=== PATIENT | female | born 1965 | race Caucasian/White ===

== ENCOUNTER 2017-09-13 18:41 | Emergency (ER) | payer BC ==
[2017-09-13] MEDS ORDERED: Sodium Chloride 0.9% 1,000 ML IV SCH (19:15)
[2017-09-13] MEDS ORDERED: Meclizine 12.5 MG Tab PO ONE (19:16)
[2017-09-13] MEDS ORDERED: Ondansetron 4 MG/2 ML SDV IVPUSH ONE (19:17)
--- NOTE | 2017-09-13 19:44 | EDM.PDOC ---
ED HPI GENERAL MEDICAL PROBLEM - General Chief Complaint: Neurological Problem Stated Complaint: DIZZY VOMITING Time Seen by Provider: 09/13/17 19:00 Source of Information: Reports: Patient History Limitations: Reports: No Limitations - History of Present Illness INITIAL COMMENTS - FREE TEXT/NARRATIVE: This is a 51-year-old female. Onset yesterday evening with vertigo that continues today. She indicates if she moves her head in certain directions or stands up or bends over the room does spend and she gets very nauseated. Around 6 PM this evening she vomited 2. Initially she denied the room spinning and just stated that her balance was kind of off. However during the interview and the exam I was able to reproduce the room spinning with movement of her head. That is when she confirmed that yes it really was the room spinning even though she felt off balance as well. She denies any recent illnesses. No ear pain no nasal congestion no sore throat no cough no headache no chest pain no abdominal pain no problems urinating. She comes of course tonight because of the severe nausea and vomiting and vertigo. Treatments DIRECTOR OF TEENAGE ACTIVITIES: Reports: Other (see below) Other Treatments DIRECTOR OF TEENAGE ACTIVITIES: none Lower Back Pain Score (Numeric/FACES): 2 - Related Data Allergies Allergy/AdvReac Type Severity Reaction Status Date / Time tramadol HCl [From Ultram] Allergy Nausea and Verified 09/26/13 19:43 Vomiting fosomax Allergy Nausea and Uncoded 09/26/13 19:43 Vomiting Home Meds: Home Meds Levothyroxine Sodium [Synthroid] 112 mcg PO DAILY 09/26/13 [History] Venlafaxine [Effexor] 100 mg PO DAILY 09/26/13 [History] Meclizine [Antivert] 12.5 mg PO TID PRN #10 tab 09/13/17 [Rx] Ondansetron HCl [Zofran] 4 mg PO Q6H PRN #5 tablet 09/13/17 [Rx] Past Medical History Neurological History: Reports: Migraines Psychiatric History: Reports: Anxiety, Depression Endocrine/Metabolic History: Reports: Hypothyroidism - Past Surgical History HEENT Surgical History: Reports: Adenoidectomy, Oral Surgery, Tonsillectomy Female Surgical History: Reports: Hysterectomy, Other (See Below) Other Female Surgeries/Procedures: breast reduction Musculoskeletal Surgical History: Reports: Arthroscopic Procedure, Carpal Tunnel , Other (See Below) Other Musculoskeletal Surgeries/Procedures:: bladder mesh; carpel tunnel surgery Social & Family History - Tobacco Use Smoking Status *Q: Never Smoker Second Hand Smoke Exposure: No - Caffeine Use Caffeine Use: Reports: Coffee, Soda, Tea - Alcohol Use Days Per Week of Alcohol Use: 0 - Recreational Drug Use Recreational Drug Use: No ED ROS GENERAL - Review of Systems Review Of Systems: See Below Constitutional: Denies: Fever, Chills HEENT: Denies: Sinus Problem Respiratory: Denies: Shortness of Breath, Cough Cardiovascular: Denies: Chest Pain Endocrine: Reports: No Symptoms GI/Abdominal: Reports: Nausea, Vomiting. Denies: Abdominal Pain, Diarrhea : Denies: Dysuria Musculoskeletal: Reports: No Symptoms Skin: Reports: No Symptoms Neurological: Reports: Dizziness, Difficulty Walking, Weakness. Denies: Headache, Numbness, Tingling, Trouble Speaking Psychiatric: Reports: No Symptoms Hematologic/Lymphatic: Reports: No Symptoms ED EXAM, DIZZINESS - Physical Exam Exam: See Below Exam Limited By: No Limitations General Appearance: Alert, WD/WN, Mild Distress Eye Exam: Bilateral Eye: EOMI, Normal Inspection, PERRL, Other (When I put the head of her bed at 30 and then gently moved her head to the left quickly she developed vertigo and you can see some slight horizontal nystagmus, when I moved her head to the right gently but quickly there were no symptoms of vertigo and there was no nystatin this) Nystagmus: worsens with head to L, reproducible Ears: Normal External Exam, Normal Canal, Normal TMs Nose: Normal Inspection, Normal Mucosa. No: Nasal Drainage, Clear Rhinorrhea Throat/Mouth: Normal Inspection, Normal Lips, Normal Oropharynx, Normal Voice, No Airway Compromise Head Exam: Normocephalic Vertigo: worsens with head to L, reproducible Neck: Normal Inspection, Supple, Non-Tender. No: Carotid Bruit Respiratory/Chest: No Respiratory Distress, Lungs Clear, Normal Breath Sounds Cardiovascular: Regular Rate, Rhythm, No Murmur GI/Abdominal: Soft, Non-Tender Neurological: Alert, Normal Mood/Affect, No Motor/Sensory Deficits, Oriented x 3 , Other (She moves her 4 extremities equally and has no asymmetrical weakness noted in the arms or legs) Back Exam: Full Range of Motion Extremities: Normal Inspection, Normal Range of Motion Psychiatric: Normal Affect, Normal Mood Skin Exam: Warm, Dry Course - Vital Signs Last Recorded V/S: Last Vital Signs Temp 97.7 F 09/13/17 18:57 Pulse 66 09/13/17 18:57 Resp 20 09/13/17 18:57 BP 127/85 09/13/17 18:57 Pulse Ox 100 09/13/17 18:57 - Orders/Labs/Meds Orders: Active Orders 24 hr Category Date Time Status Sodium Chloride 0.9% [Normal Saline] 1,000 ml Med 09/13/17 19:15 Active IV ASDIRECTED Medication Orders Sodium Chloride (Normal Saline) 1,000 mls @ 1,000 mls/hr IV ASDIRECTED BETHANY Last Admin: 09/13/17 19:26 Dose: 1,000 mls/hr Labs: Laboratory Tests 09/13/17 09/13/17 Range/Units 19:24 19:24 WBC 5.18 (3.98-10.04) K/mm3 RBC 4.32 (3.98-5.22) M/mm3 Hgb 12.2 (11.2-15.7) gm/L Hct 36.9 (34.1-44.9) % MCV 85.4 (79.4-94.8) fl MCH 28.2 (25.6-32.2) pg MCHC 33.1 (32.2-35.5) g/dl RDW Std Deviation 38.7 (36.4-46.3) fL Plt Count 236 (182-369) K/mm3 MPV 8.9 L (9.4-12.3) fl Neut % (Auto) 58.5 (34.0-71.1) % Lymph % (Auto) 33.2 (19.3-51.7) % [place] % (Auto) 8.1 (4.7-12.5) % Eos % (Auto) 0.2 L (0.7-5.8) Baso % (Auto) 0.0 L (0.1-1.2) % Neut # (Auto) 3.03 (1.56-6.13) K/mm3 Lymph # (Auto) 1.72 (1.18-3.74) K/mm3 [place] # (Auto) 0.42 H (0.24-0.36) K/mm3 Eos # (Auto) 0.01 L (0.04-0.36) K/mm3 Baso # (Auto) 0.00 L (0.01-0.08) K/mm3 Sodium 143 (136-145) mEq/L Potassium 4.1 (3.5-5.1) mEq/L Chloride 105 (98-107) mEq/L Carbon Dioxide 29 (21-32) mEq/L Anion Gap 13.1 (5-15) BUN 15 (7-18) mg/dL Creatinine 0.9 (0.55-1.02) mg/dL Est Cr Clr Drug Dosing 62.55 mL/min Estimated GFR (MDRD) > 60 (>60) mL/min BUN/Creatinine Ratio 16.7 (14-18) Glucose 106 (74-106) mg/dL Calcium 9.2 (8.5-10.1) mg/dL Magnesium 2.1 (1.8-2.4) mg/dl Total Bilirubin 0.3 (0.2-1.0) mg/dL AST 21 (15-37) U/L ALT 23 (14-59) U/L Alkaline Phosphatase 80 (46-116) U/L Total Protein 7.1 (6.4-8.2) g/dl Albumin 4.2 (3.4-5.0) g/dl Globulin 2.9 gm/dL Albumin/Globulin Ratio 1.5 (1-2) Meds: Medications Generic Name Dose Route Start Last Admin Trade Name Freq PRN Reason Stop Dose Admin Sodium Chloride 1,000 mls @ 1,000 mls/hr 09/13/17 19:15 09/13/17 19:26 Normal Saline IV 1,000 mls/hr ASDIRECTED BETHANY Administration Discontinued Medications Generic Name Dose Route Start Last Admin Trade Name Freq PRN Reason Stop Dose Admin Diazepam 5 mg 09/13/17 19:16 09/13/17 19:26 Valium IVPUSH 09/13/17 19:17 5 mg ONETIME ONE Administration Diphenhydramine HCl 25 mg 09/13/17 21:34 09/13/17 21:41 Benadryl IVPUSH 09/13/17 21:35 25 mg ONETIME ONE Administration Diphenhydramine HCl 25 mg 09/13/17 22:08 09/13/17 22:13 Benadryl IVPUSH 09/13/17 22:09 25 mg ONETIME ONE Administration Promethazine HCl 25 mg/ Sodium 51 mls @ 100 mls/hr 09/13/17 20:27 09/13/17 20 :42 Chloride IV 09/13/17 20:57 100 mls/hr ONETIME ONE Administration Sodium Chloride 1,000 mls @ 999 mls/hr 09/13/17 20:29 09/13/17 20:42 Normal Saline IV 09/13/17 21:29 999 mls/hr ONETIME ONE Administration Lorazepam 1 mg 09/13/17 22:34 09/13/17 22:40 Ativan IVPUSH 09/13/17 22:35 1 mg ONETIME ONE Administration Meclizine HCl 25 mg 09/13/17 19:16 09/13/17 19:26 Antivert PO 09/13/17 19:17 25 mg ONETIME ONE Administration Ondansetron HCl 4 mg 09/13/17 19:17 09/13/17 19:26 Zofran IVPUSH 09/13/17 19:18 4 mg ONETIME ONE Administration - Radiology Interpretation Free Text/Narrative:: CT scan of the head did not show any acute intracranial changes. - Re-Assessments/Exams Free Text/Narrative Re-Assessment/Exam: 09/13/17 20:41 Patient's complaining of her right eyelid feels like it's, drooping. I go to examine her but I do not see any asymmetry between the eyelids and she is able to blink appropriately though it feels like it is lagging for her. She also complains maybe of a mild headache generally this seems to have started. I will go ahead and do a CAT scan on her just to be certain were not missing anything here. The nurse did a neuro exam on her and there was no deficits noted at this time including sensation to the cheeks. 09/13/17 20:43 Reexam at this time of the patient's symptoms reveals no ptosis of the right eyelid, 3 EOMs are intact, she is able to verbalize with no difficulty, I do not see any deficit or facial drooping at this time. She seems to have symmetrical shooter helper, carotid bruits are negative. She is responsive and answering questions appropriately. 09/13/17 21:34 I spoke to the patient regarding the CT scan results as being negative. She now complains of her left leg having jerking and some sharp pain and it appeared we will stop the Phenergan and then I'll give her some 25 mg of Benadryl and if I need to provide some Ativan as well for her anxiety. Other than that she states she is doing better. 09/13/17 22:08 The patient appears to have had a mild reaction to the Phenergan and we gave her 25 mg of Benadryl but she still having some of the restless leg. We'll provide another 25 mg of Benadryl and if that does not resolve but will try some Ativan. 09/13/17 23:07 I've spoken to the patient and as it turns out she apparently has a history of restless leg syndrome and they tried on Lyrica but she couldn't take it. It is interesting to note that when no ER person is in the room she seems to be calm and she'll sleep in her leg will jerk. Is soon as I go into the room however and begin to talk to her as when she seems to have increasing jerking away seems to be the left lower extremity. I talked to her at length about restless leg and that there are other medication she can take besides Lyrica to help with the restless leg. She has not seen her family doctor in 4 months and I encouraged her to go back this week to see him to see what can be done about the restless leg problems that she is having. The patient states she understands. Departure - Departure Time of Disposition: 23:09 Disposition: Home, Self-Care 01 Condition: Fair Clinical Impression: Restless leg syndrome Benign positional vertigo Qualifiers: Laterality: left Qualified Code(s): H81.12 - Benign paroxysmal vertigo, left ear Nausea and vomiting Qualifiers: Vomiting type: unspecified Vomiting Intractability: non-intractable Qualified Code(s): R11.2 - Nausea with vomiting, unspecified - Discharge Information Prescriptions: Meclizine [Antivert] 12.5 mg PO TID PRN #10 tab PRN Reason: Dizziness Ondansetron HCl [Zofran] 4 mg PO Q6H PRN #5 tablet PRN Reason: Nausea Referrals: Fran Lombardo MD [Primary Care Provider] - Forms: ED Department Discharge Additional Instructions: Home and sleep in a dark room, the very careful about what you do tomorrow since the vertigo might return, if the dizziness/vertigo returns you may use the Zofran for the nausea as well as the meclizine to help with the dizziness, you need to drink lots of water and juices to stay well-hydrated since that will help, the need to follow up with your family doctor this week regarding your restless leg syndrome, return to the ER if needed - My Orders Last 24 Hours: My Active Orders 09/13/17 19:15 Sodium Chloride 0.9% [Normal Saline] 1,000 ml IV ASDIRECTED - Assessment/Plan Last 24 Hours: My Active Orders 09/13/17 19:15 Sodium Chloride 0.9% [Normal Saline] 1,000 ml IV ASDIRECTED
[2017-09-13] MEDS ORDERED: Promethazine 25 MG in Sodium Chloride 0.9% 50 ML IV ONE (20:27)
[2017-09-13] MEDS ORDERED: Sodium Chloride 0.9% 1,000 ML IV ONE (20:29)
--- NOTE | 2017-09-13 21:14 | CT ---
Head CT Technique: Multiple axial sections through the brain were obtained. Intravenous contrast was not utilized. Comparison: Prior noncontrast head CT exam of 10/24/12. Findings: Ventricles along with basal cisterns and sulci over the convexities are within normal limits for the patient's age. Slight basal ganglia calcification is noted. No abnormal parenchymal densities are seen. No evidence of intracranial hemorrhage. No midline shift or mass effect is seen. Bone window settings were reviewed which shows no acute calvarial abnormality. Visualized sinuses are clear. Impression: 1. Nothing acute is appreciated on noncontrast head CT study. If patient's symptoms warrant further imaging, MRI with diffusion could be considered. Diagnostic code #1
[2017-09-13] MEDS ORDERED: diphenhydrAMINE 50 MG/ML SDV IVPUSH ONE ×2 (21:34→22:08)
[2017-09-13] MEDS ORDERED: LORazepam 2 MG/ML SDV IVPUSH ONE (22:34)
== END 2017-09-13 23:25 | disposition home or self-care (01) ==
LOC: JD.ED 18:41
DX: H81.12 Benign paroxysmal vertigo, left ear (principal); G25.81 Restless legs syndrome; E03.9 Hypothyroidism, unspecified; Z88.5 Allergy status to narcotic agent; Z88.8 Allergy status to other drugs, medicaments and biological substances; Z79.899 Other long term (current) drug therapy
CPT/HCPCS: 36415; 70450; 80053; 83735; 85025; 96361; 96374; 96375; 96376; 99284; A9270; J1200; J2060; J2405; J2550; J3360; J7040; J7050

== ENCOUNTER 2018-02-01 14:37 | Emergency (ER) | payer BC ==
[2018-02-01] MEDS ORDERED: Acetaminophen/HYDROcodone 325-5 MG Tab PO ONE (15:27)
[2018-02-01] MEDS ORDERED: Diphtheria,Pertussis(Acell),Tetanus Vaccine 0.5 ML SDV IM ONE (16:37)
--- NOTE | 2018-02-01 16:42 | EDM.PDOC ---
ED HPI GENERAL MEDICAL PROBLEM - General Chief Complaint: Laceration Stated Complaint: TOE INJURY Time Seen by Provider: 02/01/18 14:56 Source of Information: Reports: Patient History Limitations: Reports: No Limitations - History of Present Illness INITIAL COMMENTS - FREE TEXT/NARRATIVE: The patient was in her garage and slipped and fell and hit her left great toe and cut it. She did not hit her head or hurt her neck. She has no chest pain or abdominal pain. She does have some mild upper back pain and right knee pain. She has moderate pain to her left great toe. Onset: Sudden Duration: Minutes: Location: Reports: Back (right upper back), Lower Extremity, Left (great toe), Lower Extremity, Right (knee) Quality: Reports: Sharp Severity: Moderate Improves with: Reports: Immobilization Worsens with: Reports: Movement Context: Reports: Trauma (She fell in her garage) Associated Symptoms: Reports: No Other Symptoms Left Feet Pain Score (Numeric/FACES): 8 - Related Data Allergies Allergy/AdvReac Type Severity Reaction Status Date / Time tramadol HCl [From [facility]] Allergy Nausea and Verified 02/01/18 14:53 Vomiting fosomax Allergy Nausea and Uncoded 09/26/13 19:43 Vomiting Home Meds: Home Meds Levothyroxine Sodium [Synthroid] 112 mcg PO DAILY 09/26/13 [History] Venlafaxine [Effexor] 100 mg PO DAILY 09/26/13 [History] Cholecalciferol (Vitamin D3) [Vitamin D] 1 tab PO DAILY 02/01/18 [History] Magnesium 200 mg PO DAILY 02/01/18 [History] Melatonin 5 mg PO BEDTIME 02/01/18 [History] Past Medical History [employer]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: Neurological History: Reports: Migraines, Other (See Below) Other Neuro History: restless leg syndrome Psychiatric History: Reports: Anxiety, Depression Endocrine/Metabolic History: Reports: Hypothyroidism - Past Surgical History HEENT Surgical History: Reports: Adenoidectomy, Oral Surgery, Tonsillectomy Female Surgical History: Reports: Hysterectomy, Other (See Below) Other Female Surgeries/Procedures: breast reduction Musculoskeletal Surgical History: Reports: Arthroscopic Procedure, Carpal Tunnel , Other (See Below) Other Musculoskeletal Surgeries/Procedures:: bladder mesh; carpel tunnel surgery Social & Family History - Tobacco Use Smoking Status *Q: Unknown Ever Smoked - Caffeine Use Caffeine Use: Reports: Coffee - Recreational Drug Use Recreational Drug Use: Yes ED ROS GENERAL - Review of Systems Review Of Systems: See Below Constitutional: Reports: No Symptoms HEENT: Reports: No Symptoms Respiratory: Reports: No Symptoms Cardiovascular: Reports: No Symptoms Endocrine: Reports: No Symptoms GI/Abdominal: Reports: No Symptoms : Reports: No Symptoms Musculoskeletal: Reports: Back Pain (right upper back), Other (Left great toe pain and laceration. Right knee pain) ED EXAM, SKIN/RASH Exam: See Below Exam Limited By: No Limitations General Appearance: Alert, No Apparent Distress Ears: Normal External Exam Nose: Normal Inspection Head: Atraumatic, Normocephalic Neck: Normal Inspection Respiratory/Chest: No Respiratory Distress, Lungs Clear, Normal Breath Sounds Cardiovascular: Regular Rate, Rhythm, No Edema, No Murmur GI/Abdominal: Soft, Non-Tender, No Organomegaly, No Mass Back Exam: Other (Mild pain upon palpation to the right scapula) Extremities: Other (Mild pain upon palpation to the right knee. 2cm laceration to the left great toe with more abrasions proximal. Pain upon palpation and with movement.) Neurological: Alert, Oriented, No Motor/Sensory Deficits ED SKIN PROCEDURES - Laceration/Wound Repair Left Toe - Great Lac/Wound length In cm: 2 Appearance: Superficial, Clean Distal NVT: Neuro & Vascular Intact, No Tendon Injury Closed with: Dermabond Tetanus Status Addressed: Yes Complications: No Course - Vital Signs Last Recorded V/S: Last Vital Signs Temp 98.6 F 02/01/18 14:50 Pulse 70 02/01/18 14:50 Resp 18 02/01/18 14:50 BP 139/82 02/01/18 14:50 Pulse Ox 99 02/01/18 14:50 - Orders/Labs/Meds Orders: Active Orders 24 hr Category Date Time Status Foot Comp Min 3V Lt [CR] Stat Exams 02/01/18 15:27 Ordered Meds: Medications Discontinued Medications Generic Name Dose Route Start Last Admin Trade Name Freq PRN Reason Stop Dose Admin Hydrocodone Bitart/Acetaminophen 1 tab 02/01/18 15:27 02/01/18 15:40 [place] 325-5 Mg PO 02/01/18 15:28 1 tab ONETIME ONE Administration - Re-Assessments/Exams Free Text/Narrative Re-Assessment/Exam: 02/01/18 16:42 I did an x-ray of her toe and it looked good. I used some adhesive to close the wound. I updated her tetanus. I also gave her some hydrocodone for pain. Departure - Departure Time of Disposition: 16:45 Disposition: Home, Self-Care 01 Condition: Good Clinical Impression: Abrasion, left great toe, initial encounter Fall Qualifiers: Encounter type: initial encounter Qualified Code(s): W19.XXXA - Unspecified fall, initial encounter Laceration of left great toe Qualifiers: Encounter type: initial encounter Damage to nail status: without damage Foreign body presence: without foreign body Qualified Code(s): S91.112A - Laceration without foreign body of left great toe without damage to nail, initial encounter Sprain of left great toe Qualifiers: Encounter type: initial encounter Qualified Code(s): S93.502A - Unspecified sprain of left great toe, initial encounter Contusion of right knee Qualifiers: Encounter type: initial encounter Qualified Code(s): S80.01XA - Contusion of right knee, initial encounter - Discharge Information *PRESCRIPTION DRUG MONITORING PROGRAM REVIEWED*: No *COPY OF PRESCRIPTION DRUG MONITORING REPORT IN PATIENT DIPESH: No Referrals: Fran Lomabrdo MD [Primary Care Provider] - 1 Week Additional Instructions: Soak your foot in warm soapy water 2 times per day for 5 days. Please return if you see any signs of infection such as redness, swelling, pain, or drainage. You may need an antibiotic. Ice the areas that hurt for 15 minutes 3 times per day for 2 days. Take motrin or tylenol for pain. If that does not help, you may try a hydrocodone. Follow up with your doctor if you are not better in 1 week. Please return if you are worse. - My Orders Last 24 Hours: My Active Orders 02/01/18 15:27 Foot Comp Min 3V Lt [CR] Stat - Assessment/Plan Last 24 Hours: My Active Orders 02/01/18 15:27 Foot Comp Min 3V Lt [CR] Stat
--- NOTE | 2018-02-02 13:19 | CR ---
Left foot: Four portable views of the left foot were obtained. Comparison: No previous study. No fracture, dislocation or other bony abnormality is seen. Impression: 1. No abnormality is appreciated on left foot exam. Diagnostic code #1
== END 2018-02-01 17:00 | disposition home or self-care (01) ==
LOC: JD.ED 14:37
DX: S91.112A Laceration without foreign body of left great toe without damage to nail, initial encounter (principal); S93.502A Unspecified sprain of left great toe, initial encounter; S80.01XA Contusion of right knee, initial encounter; F41.9 Anxiety disorder, unspecified; F32.9 Major depressive disorder, single episode, unspecified; E03.9 Hypothyroidism, unspecified; Z79.899 Other long term (current) drug therapy; Z23 Encounter for immunization; Z88.5 Allergy status to narcotic agent; Z88.8 Allergy status to other drugs, medicaments and biological substances; W01.198A Fall on same level from slipping, tripping and stumbling with subsequent striking against other object, initial encounter; Y92.59 Other trade areas as the place of occurrence of the external cause
CPT/HCPCS: 12001; 73630; 90471; 90715; 99284; A9270; 99283

== ENCOUNTER 2018-02-16 08:44 | Inpatient (IN) | payer BC ==
--- NOTE | 2018-02-16 08:24 | PCM.PREANE ---
Preanesthetic Assessment - Anesthesia/Transfusion/Family Hx Anesthesia History: Prior Anesthesia Without Reaction Family History of Anesthesia Reaction: No Transfusion History: Prior Transfusion Without Reaction Intubation History: Unknown - Review of Systems General: No Symptoms Pulmonary: No Symptoms (quit smoking 2004) Cardiovascular: No Symptoms Gastrointestinal: No Symptoms, Constipation Neurological: No Symptoms (History of Back Surgery:2002 L5-S1, 2013 L3-L5.), Headache, Numbness (left leg since back surgery along with 3 toes on the left foot.), Tingling Other: Reports: Thyroid Problems (History of hypothyroid), Neck Pain (bulge disk in neck noted per patient), Depression, Anxiety - Physical Assessment NPO Status Date: 02/15/18 NPO Status Time: 23:15 Pulse: 72 O2 Sat by Pulse Oximetry: 95 Respiratory Rate: 16 Blood Pressure: 130/85 Temperature: 36.7 C Height: 1.55 m Weight: 75.296 kg ASA Class: 2 Mental Status: Alert & Oriented x3 Airway Class: Mallampati = 2 Dentition: Reports: Normal Dentition, Missing Tooth/Teeth, Caries Thyro-Mental Finger Breadths: 3 Mouth Opening Finger Breadths: 3 ROM/Head Extension: Full Lungs: Clear to Auscultation, Normal Respiratory Effort Cardiovascular: Regular Rate, Regular Rhythm, No Murmurs - Lab Values: Laboratory Last Values MRSA (PCR) Negative 01/30/18 09:57 All lab values reviewed and noted and within acceptable ranges to proceed with scheduled procedure. - Imaging/EKG Impressions: CXR: normal EKG: SR rate= 67 - Allergies Allergies/Adverse Reactions: Allergies Allergy/AdvReac Type Severity Reaction Status Date / Time promethazine Allergy Cannot Verified 02/13/18 13:41 Remember alendronate sodium AdvReac Nausea and Verified 02/13/18 13:41 Vomiting tramadol HCl [From Ultram] AdvReac Nausea and Verified 02/13/18 13:41 Vomiting - Anesthesia Plan Pre-Op Medication Ordered: None - Acknowledgements Anesthesia Type Planned: General Anesthesia, Spinal, Regional Block (Right adductor canal block under US guidance for post operative pain control requested by Dr. 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 Musculoskeletal History: Reports: Osteoarthritis Neurological History: Reports: Migraines Psychiatric History: Reports: Anxiety, Depression Endocrine/Metabolic History: Reports: Hypothyroidism Hematologic History: Reports: None Immunologic History: Reports: None Oncologic (Cancer) History: Reports: None Dermatologic History: Reports: None - Past Surgical History Head Surgeries/Procedures: Reports: None HEENT Surgical History: Reports: Adenoidectomy, Oral Surgery, Tonsillectomy Cardiovascular Surgical History: Reports: None Respiratory Surgical History: Reports: None GI Surgical History: Reports: Colonoscopy Female Surgical History: Reports: Breast Reconstruction, Hysterectomy, Other (See Below) Other Female Surgeries/Procedures: breast reduction Endocrine Surgical History: Reports: None Neurological Surgical History: Reports: Other (See Below) Other Neurological Surgeries/Procedures: L5S1, L3L4L5 surgeries Musculoskeletal Surgical History: Reports: Arthroscopic Procedure, Carpal Tunnel , Other (See Below) Other Musculoskeletal Surgeries/Procedures:: bladder mesh; carpel tunnel surgery Oncologic Surgical History: Reports: None Dermatological Surgical History: Reports: None - SUBSTANCE USE Smoking Status *Q: Former Smoker Second Hand Smoke Exposure: No Recreational Drug Use History: No - HOME MEDS Home Medications: Home Meds Cholecalciferol (Vitamin D3) [Vitamin D3] 5,000 unit PO DAILY 02/13/18 [History] Levothyroxine Sodium [Synthroid] 100 mcg PO DAILY 02/13/18 [History] Magnesium Oxide [Magnesium] 400 mg PO DAILY 02/13/18 [History] Venlafaxine HCl [Venlafaxine ER] 150 mg PO DAILY 02/13/18 [History] - CURRENT (IN HOUSE) MEDS Current Meds: Current Medications Acetaminophen (Tylenol) 975 mg PO ONETIME [facility] Stop: 02/16/18 18:00 Aspirin (Ecotrin) 325 mg PO BID [facility] Bisacodyl (Dulcolax) 5 mg PO DAILY PRN PRN Reason: Constipation Morphine Sulfate 8 mg/Epinephrine HCl 0.3 mg/Cefuroxime Sodium 750 mg/Ketorolac Tromethamine 30 mg/Sodium Chloride 27.9 ml 0 mg .XX ONETIME ONE Stop: 02/16/18 11:01 Cyclobenzaprine HCl (Flexeril) 10 mg PO TID PRN PRN Reason: Spasms Docusate Sodium (Colace) 100 mg PO BID [facility] Famotidine (Pepcid) 20 mg PO Q12H [facility] Lactated Ringer's (Ringers, Lactated) 1,000 mls @ 125 mls/hr IV ASDIRECTED [facility] Stop: 02/16/18 23:00 Cefazolin Sodium/Dextrose 2 gm (/ Premix) 50 mls @ 100 mls/hr IV Q8H [facility] Stop: 02/16/18 23:14 Ketorolac Tromethamine (Toradol) 15 mg IVPUSH Q6H PRN PRN Reason: Pain Lidocaine/Sodium Bicarbonate (Buffered Lidocaine 1% In Ns 8.4%) 0.25 ml IDERM ONETIME PRN PRN Reason: Prior to IV Start Stop: 02/16/18 18:00 Magnesium Hydroxide (Milk Of Magnesia) 30 ml PO BID PRN PRN Reason: Constipation Morphine Sulfate (Morphine) 2 mg IVPUSH Q2H PRN PRN Reason: Breakthrough Pain Naloxone HCl (Narcan) 0.1 mg IVPUSH Q5M PRN PRN Reason: Oversedation Ondansetron HCl (Zofran) 4 mg IVPUSH Q6H PRN PRN Reason: Nausea/Vomiting Oxycodone HCl (Oxycontin) 10 mg PO ONETIME [facility] Stop: 02/16/18 18:00 Oxycodone/Acetaminophen (Percocet 325-5 Mg) 1 - 2 tab PO Q4H PRN PRN Reason: Pain Pregabalin (Lyrica) 50 mg PO ONETIME [facility] Stop: 02/16/18 18:00 Senna (Senna) 8.6 mg PO BID PRN PRN Reason: Constipation Sodium Chloride (Saline Flush) 10 ml FLUSH ASDIRECTED PRN PRN Reason: Keep Vein Open Stop: 02/16/18 18:00 Discontinued Medications Bupivacaine HCl/Dextrose (Marcaine 0.75% Spinal) Confirm Administered Dose 2 ml .ROUTE .STK-MED ONE Stop: 02/16/18 07:28 Cefazolin Sodium (Ancef) Confirm Administered Dose 2 gm .ROUTE .STK-MED ONE Stop: 02/16/18 07:28 Dexamethasone (Dexamethasone) Confirm Administered Dose 4 mg .ROUTE .STK-MED ONE Stop: 02/16/18 07:28 Epinephrine HCl (Adrenalin) Confirm Administered Dose 1 mg .ROUTE .STK-MED ONE Stop: 02/16/18 07:35 Fentanyl (Sublimaze) Confirm Administered Dose 100 mcg .ROUTE .STK-MED ONE Stop: 02/16/18 07:28 Lidocaine HCl (Xylocaine-Mpf 1%) Confirm Administered Dose 14 mls @ as directed .ROUTE .STK-MED ONE Stop: 02/16/18 07:28 Lactated Ringer's (Ringers, Lactated) Confirm Administered Dose 1,000 mls @ as directed .ROUTE .ST-MED ONE Stop: 02/16/18 07:28 Ketorolac Tromethamine (Toradol) Confirm Administered Dose 30 mg .ROUTE .ST- MED ONE Stop: 02/16/18 07:28 Midazolam HCl (Versed 1 Mg/Ml) Confirm Administered Dose 2 mg .ROUTE .STK-MED ONE Stop: 02/16/18 07:28 Ondansetron HCl (Zofran) Confirm Administered Dose 4 mg .ROUTE .STK-MED ONE Stop: 02/16/18 07:28 Propofol (Diprivan 20 Ml) Confirm Administered Dose 400 mg .ROUTE .STK-MED ONE Stop: 02/16/18 07:28 Ropivacaine (Naropin 0.5%) Confirm Administered Dose 30 ml .ROUTE .STK-MED ONE Stop: 02/16/18 07:35
[~2018-02-16 08:44] MED LIST: Acetaminophen 325 MG Tab PO SCH; Bupivacaine 0.75%/D5W 2 ML Amp ONE; Dexamethasone 4 MG/ML SDV ONE; EPINEPHrine 1 MG/ML SDV ONE; Ketorolac 30 MG/ML SDV ONE; Lactated Ringers 1,000 ML IV SCH; Lactated Ringers 1,000 ML ONE; Lidocaine 1% 14 ML ONE; Lidocaine 1%/Sod Bicarbonate in NS 8.4% 1 ML Syringe IDERM PRN; Midazolam 1 MG/ML 2 ML SDV ONE; Ondansetron 4 MG/2 ML SDV ONE; Pregabalin 25 MG Cap PO SCH; Propofol 200 MG/20 ML SDV ONE; Ropivacaine 0.5% 5 MG/ML 30 ML SDV ONE; Sodium Chloride 0.9% 10 ML Syringe FLUSH PRN; ceFAZolin 1 GM Vial ONE; fentaNYL 100 MCG/2 ML SDV ONE; oxyCODONE ER 10 MG TAB.ER PO SCH
[2018-02-16] MEDS ORDERED: ceFAZolin 1 GM Vial ONE (08:53)
[2018-02-16] MEDS ORDERED: Vancomycin 1 GM SDV ONE (08:53)
[2018-02-16] MEDS ORDERED: Iodine/Sodium Iodide 2% Tincture 30 ML Bottle ONE (08:54)
[2018-02-16] MEDS ORDERED: Bupivacaine 0.25% 30 ML SDV ONE (08:54)
[2018-02-16] MEDS ORDERED: Ketamine 500 mg/10 ML MDV ONE (10:25)
[2018-02-16] MEDS ORDERED: Midazolam 1 MG/ML 2 ML SDV IVPUSH PRN (10:30)
[2018-02-16] MEDS ORDERED: diphenhydrAMINE 50 MG/ML SDV IVPUSH PRN ×2 (10:30→15:33)
[2018-02-16] MEDS ORDERED: Ondansetron 4 MG/2 ML SDV IVPUSH PRN ×2 (10:30→13:00)
[2018-02-16] MEDS ORDERED: Phenylephrine 1 MG in Sodium Chloride 0.9% 10 ML IV SCH (10:30)
[2018-02-16] MEDS ORDERED: fentaNYL 100 MCG/2 ML SDV IVPUSH PRN (10:30)
[2018-02-16] MEDS ORDERED: Meperidine 50 MG/ML Vial IVPUSH PRN (10:30)
[2018-02-16] MEDS ORDERED: Haloperidol Lactate 5 MG/ML SDV IVPUSH PRN (10:30)
[2018-02-16] MEDS ORDERED: ePHEDrine 50 MG/ML SDV IVPUSH PRN (10:30)
[2018-02-16] MEDS ORDERED: HYDROmorphone 0.5 MG/0.5 ML Syringe IVPUSH PRN (10:31)
[2018-02-16] MEDS ORDERED: Phenylephrine/Normal Saline 100 MCG/ML 10 ML Syringe ONE (10:37)
[2018-02-16] MEDS ORDERED: Lactated Ringers 1,000 ML ONE (10:43)
[2018-02-16] MEDS ORDERED: ePHEDrine/Normal Saline 25 MG/5 ML Syringe ONE (11:11)
[2018-02-16] MEDS: Morphine 8 MG, EPINEPHrine 0.3 MG, Cefuroxime 750 MG, Ketorolac 30 MG, Sodium Chloride ... ONE ×10 (11:14→16:08)
--- NOTE | 2018-02-16 11:58 | PCM.POSTAN ---
POST ANESTHESIA ASSESSMENT - MENTAL STATUS Mental Status: Alert - VITAL SIGNS Pulse Rate: 104 SaO2: 98 (2 LPM NC) Resp Rate: 14 Blood Pressure: 96/54 Temperature: 36.6 C - RESPIRATORY Respiratory Status: Respiratory Rate WNL, Airway Patent, O2 Saturation Stable, Supplemental Oxygen - CARDIOVASCULAR CV Status: Pulse Rate WNL, Blood Pressure Stable - GASTROINTESTINAL GI Status: No Symptoms - POST OP HYDRATION Hydration Status: Adequate & Stable
--- NOTE | 2018-02-16 12:52 | PCM.SN ---
- Free Text/Narrative Note: Right selective femoral nerve block within the adductor canal for post- procedure pain control under US guidance requested by Dr. Boswell. Time Out: 1158 Start: 1158 End: 1213 Chart reviewed. Consent signed. Questions answered. Appropriate monitors applied. Time out performed. Right mid-shaft femur identified with ultrasound, scanning medially of femur, the femoral artery in the adductor canal visualized , and the femoral nerve located laterally to the artery. The skin was prepped lateral to the ultrasound probe with chlorahexadine times two. The 21ga 4 insulated block needle was inserted under direct ultrasound guidance into the adductor canal. 23mL of 0.5% ropivacaine with 1:200,000 epinephrine was injected circumferentially around the nerve with intermittent negative aspiration noted. Patient tolerated the procedure well. Sterile technique noted along with sterile gloves, mask, and sterile probe cover. See picture on progress note and vital signs on nurses notes. Block completed in PACU. ELY Lyman
--- NOTE | 2018-02-16 12:55 | CR ---
Right knee: Portable AP and lateral views of the right knee were obtained. Comparison: No prior right knee exam. Right knee prosthesis is seen. Components are aligned. Underlying bony structures are intact. Soft tissue air is noted from the surgical procedure. Impression: 1. Satisfactory postoperative radiographic appearance of recently placed right knee prosthesis. Diagnostic code #2
[2018-02-16] MEDS ORDERED: Naloxone 0.4 MG/ML SDV IVPUSH PRN (13:00)
[2018-02-16] MEDS ORDERED: Bisacodyl 5 MG Tab PO PRN (13:00)
[2018-02-16] MEDS ORDERED: Magnesium Hydroxide 400 MG/5 ML Susp 30 ML Cup PO PRN (13:00)
[2018-02-16] MEDS ORDERED: Sennosides 8.6 MG Tab PO PRN (13:00)
[2018-02-16] MEDS ORDERED: Morphine 2 MG/ML Syringe IVPUSH PRN (13:00)
[2018-02-16] MEDS: Acetaminophen/oxyCODONE 325-5 MG Tab PO PRN ×2 (14:51→19:01)
[2018-02-16] MEDS: Ketorolac 15 MG/ML SDV IVPUSH PRN ×2 (14:52→21:16)
--- NOTE | 2018-02-16 15:57 | PCM.CONS ---
H&P History of Present Illness - General Date of Service: 02/16/18 Admit Problem/Dx: Admission Diagnosis/Problem Admission Diagnosis/Problem Osteoarthritis of knee Source of Information: Patient, Old Records, Provider History Limitations: Reports: No Limitations - History of Present Illness Initial Comments - Free Text/Narative: Kimber is a 52 yo female patient of Dr. Boswell who is post-operative day 0 of right TKA. Hospital medicine was consulted for post-operative medical care. At this time she is resting comfortably in bed. She reports pain 6/10, will give pain medication PRN. She denies any chest pain, shortness of breath, palpitations, nausea, or vomiting. She carries a history of: Hypothyroid and Depression. She quit smoking in 2004. She is a full code. Her primary care provider is Dr. Lombardo. Right Knee Pain Score (Numeric/FACES): 7 - Related Data Allergies/Adverse Reactions: Allergies Allergy/AdvReac Type Severity Reaction Status Date / Time promethazine Allergy Cannot Verified 02/13/18 13:41 Remember alendronate sodium AdvReac Nausea and Verified 02/13/18 13:41 Vomiting tramadol HCl [From Ultram] AdvReac Nausea and Verified 02/13/18 13:41 Vomiting Home Medications: Home Meds Cholecalciferol (Vitamin D3) [Vitamin D3] 5,000 unit PO DAILY 02/13/18 [History] Levothyroxine Sodium [Synthroid] 100 mcg PO DAILY 02/13/18 [History] Magnesium Oxide [Magnesium] 250 mg PO DAILY 02/13/18 [History] Venlafaxine HCl [Venlafaxine ER] 150 mg PO DAILY 02/13/18 [History] Acetaminophen/oxyCODONE [Percocet 325-5 MG] 1 - 2 tab PO Q6H PRN #60 tablet 03/26 [Rx] Aspirin [Ecotrin] 325 mg PO BID #84 tab.ec 02/16/18 [Rx] Bisacodyl [Dulcolax] 5 mg PO DAILY PRN tablet 02/16/18 [Rx] Docusate Sodium [Colace] 100 mg PO BID cap 02/16/18 [Rx] Famotidine [Pepcid] 20 mg PO Q12H tablet 02/16/18 [Rx] Magnesium Hydroxide [Milk of Magnesia] 30 ml PO BID PRN cup 02/16/18 [Rx] Sennosides [Senna] 8.6 mg PO BID PRN tablet 02/16/18 [Rx] Past Medical History HEENT History: Reports: Impaired Vision Cardiovascular History: Reports: None Respiratory History: Reports: None Gastrointestinal History: Reports: None 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: 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, 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 Musculoskeletal History: Reports: Osteoarthritis Neurological History: Reports: Migraines Other Neuro History: restless leg syndrome Psychiatric History: Reports: Anxiety, Depression Endocrine/Metabolic History: Reports: Hypothyroidism Hematologic History: Reports: None Immunologic History: Reports: None Oncologic (Cancer) History: Reports: None Dermatologic History: Reports: None - Past Surgical History Head Surgeries/Procedures: Reports: None HEENT Surgical History: Reports: Adenoidectomy, Oral Surgery, Tonsillectomy Cardiovascular Surgical History: Reports: None Respiratory Surgical History: Reports: None GI Surgical History: Reports: Colonoscopy Female Surgical History: Reports: Breast Reconstruction, Hysterectomy, Other (See Below) Other Female Surgeries/Procedures: breast reduction Endocrine Surgical History: Reports: None Neurological Surgical History: Reports: Other (See Below) Other Neurological Surgeries/Procedures: L5S1, L3L4L5 surgeries Musculoskeletal Surgical History: Reports: Arthroscopic Procedure, Carpal Tunnel , Other (See Below) Other Musculoskeletal Surgeries/Procedures:: bladder mesh; carpel tunnel surgery Oncologic Surgical History: Reports: None Dermatological Surgical History: Reports: None Social & Family History - Family History Family Medical History: Noncontributory - Tobacco Use Smoking Status *Q: Former Smoker Years of Tobacco use: 15 Packs/Tins Daily: 1 Used Tobacco, but Quit: Yes Month/Year Tobacco Last Used: Jun 2003 Second Hand Smoke Exposure: No - Caffeine Use Caffeine Use: Reports: Coffee Other Caffeine Use: 3 cups/day - Recreational Drug Use Recreational Drug Use: No H&P Review of Systems - Review of Systems: Review Of Systems: See Below General: Reports: No Symptoms. Denies: Fever, Chills HEENT: Reports: No Symptoms Pulmonary: Reports: No Symptoms. Denies: Shortness of Breath Cardiovascular: Reports: No Symptoms. Denies: Chest Pain, Blood Pressure Problem Gastrointestinal: Reports: No Symptoms. Denies: Diarrhea, Nausea, Vomiting Genitourinary: Reports: No Symptoms. Denies: Dysuria, Frequency, Burning, Pain Musculoskeletal: Reports: No Symptoms, Joint Pain (s/p R TKA, 11/16) Skin: Reports: No Symptoms Psychiatric: Reports: Anxiety Neurological: Reports: No Symptoms, Numbness, Tingling, Gait Disturbance (s/p R TKA) Hematologic/Lymphatic: Reports: No Symptoms Immunologic: Reports: No Symptoms Exam - Exam Exam: See Below - Vital Signs Vital Signs: Last Vital Signs Temp 98.3 F 02/16/18 13:15 Pulse 91 02/16/18 13:15 Resp 16 02/16/18 13:15 BP 108/62 02/16/18 13:15 Pulse Ox 99 02/16/18 13:15 Weight: 166 lb - Exam Quality Assessment: DVT Prophylaxis. No: Supplemental Oxygen General: Alert, Oriented, Cooperative HEENT: PERRLA, Hearing Intact, Mucosa Moist & Brilliant, Nares Patent, Normal Nasal Septum, Posterior Pharynx Clear, Conjunctiva Clear, EOMI, EACs Clear, TMs Clear Neck: Supple, Trachea Midline, 2 Lungs: Clear to Auscultation, Normal Respiratory Effort Cardiovascular: Regular Rate, Regular Rhythm GI/Abdominal Exam: Normal Bowel Sounds, Soft, Non-Tender, No Organomegaly, No Distention, No Abnormal Bruit, No Mass, Pelvis Stable (Female) Exam: Deferred Rectal (Female) Exam: Deferred Back Exam: Normal Inspection, Full Range of Motion, NT Extremities: Normal Inspection, Non-Tender, No Pedal Edema, Normal Capillary Refill, Limited Range of Motion (s/p RTKA) Peripheral Pulses: 2+: Posterior Tibial (L), Posterior Tibial (R), Dorsalis Pedis (L), Dorsalis Pedis (R) Skin: Warm, Dry, Intact Neurological: Cranial Nerves Intact (grossly) Neuro Extensive - Mental Status: Alert, Oriented x3, Normal Mood/Affect, Normal Cognition Psychiatric: Alert, Normal Affect, Normal Mood Consult PN Assessment/Plan POD#: 0 Procedures: Procedures ASSAY OF MAGNESIUM (09/13/17) COMPLETE CBC W/AUTO DIFF WBC (09/13/17) COMPREHEN METABOLIC PANEL (09/13/17) CT HEAD/BRAIN W/O DYE (09/13/17) EMERGENCY DEPT VISIT (02/01/18) EMERGENCY DEPT VISIT (12/23/13) FIBRIN DEGRADATION QUANT (12/25/17) HYDRATE IV INFUSION ADD-ON (09/13/17) IMMUNIZATION ADMIN (02/01/18) ROUTINE VENIPUNCTURE (12/25/17) RPR S/N/AX/GEN/TRNK 2.5CM/< (02/01/18) TDAP VACCINE 7 YRS/> IM (02/01/18) THER/PROPH/DIAG INJ IV PUSH (09/13/17) THER/PROPH/DIAG INJ SC/IM (09/26/13) TX/PRO/DX INJ NEW DRUG ADDON (09/13/17) TX/PRO/DX INJ SAME DRUG ASSEMBLER TRACTOR (09/13/17) X-RAY EXAM L-S SPINE 2/3 VWS (06/14/14) X-RAY EXAM NECK SPINE 2-3 VW (04/04/14) X-RAY EXAM OF FOOT (02/01/18) (1) Status post total right knee replacement SNOMED Code(s): 9602251664919 Code(s): Z96.651 - PRESENCE OF RIGHT ARTIFICIAL KNEE JOINT Priority: High Current Visit: Yes (2) Hypothyroid SNOMED Code(s): 28023313 Code(s): E03.9 - HYPOTHYROIDISM, UNSPECIFIED Priority: Low Current Visit : Yes Qualifiers: Hypothyroidism type: unspecified Qualified Code(s): E03.9 - Hypothyroidism , unspecified (3) Depression SNOMED Code(s): 18745363 Code(s): F32.9 - MAJOR DEPRESSIVE DISORDER, SINGLE EPISODE, UNSPECIFIED Priority: Low Current Visit: Yes Qualifiers: Depression Type: unspecified Qualified Code(s): F32.9 - Major depressive disorder, single episode, unspecified Problem List Initiated/Reviewed/Updated: Yes Plan: I/P: Acute: S/P right total knee arthroplasty - post-operative day 0 -DVT prophylaxis and pain management per primary care team -PT/OT -IS/RT -Monitor oxygen saturation -Titrate oxygen as needed -Vital signs stable -Monitor labs -Pre-operative Hgb was 12.5 -Pre-operative GFR was 69 Osteoarthritis of right knee -Pain management per primary care team Chronic: Hypothyroid Depression Plan: CM for discharge planning GI prophylaxis Home medications as indicated Other orders as listed above Routine AM labs She is a full code. Her PCP is Dr. Lombardo. Thank you for allowing us to participate in the care of this patient!!
[2018-02-16] MEDS: ceFAZolin 2 GM in Premix Bag 1 BAG IV SCH (16:44)
[2018-02-16] MEDS: Docusate Sodium 100 MG Cap PO SCH (21:15)
[2018-02-16] MEDS: Cyclobenzaprine 10 MG Tab PO PRN (21:16)
[2018-02-16] MEDS: Famotidine 20 MG Tab PO SCH (21:17)
[2018-02-16] MEDS ORDERED: Magnesium Oxide 400 MG Tab PO SCH (22:00)
[2018-02-17] MEDS: ceFAZolin 2 GM in Premix Bag 1 BAG IV SCH ×2 (00:10→08:48)
[2018-02-17] MEDS: Acetaminophen/oxyCODONE 325-5 MG Tab PO PRN ×3 (00:16→10:29)
[2018-02-17] MEDS: Ketorolac 15 MG/ML SDV IVPUSH PRN (03:37)
[2018-02-17] MEDS ORDERED: Levothyroxine 100 MCG Tab PO SCH (06:00)
--- NOTE | 2018-02-17 06:39 | PCM.CONSN ---
- General Info Date of Service: 02/17/18 Admission Dx/Problem (Free Text): Admission Diagnosis/Problem Admission Diagnosis/Problem Osteoarthritis of knee Subjective Update: In to see Kimber. She is sitting up in the chair eating. She reports some mild dizziness but no other issues. She is otherwise doing well and has no concerns. No nursing concerns. Functional Status: Reports: Pain Controlled, Tolerating Diet, Ambulating, Urinating, Incentive Spirometry. Denies: New Symptoms - Review of Systems General: Reports: No Symptoms. Denies: Fever, Malaise HEENT: Reports: No Symptoms. Denies: Sore Throat Pulmonary: Reports: No Symptoms. Denies: Shortness of Breath, Cough, Sputum, Wheezing Cardiovascular: Reports: No Symptoms. Denies: Chest Pain, Palpitations Gastrointestinal: Reports: No Symptoms. Denies: Abdominal Pain, Constipation, Diarrhea, Nausea, Vomiting Genitourinary: Reports: No Symptoms. Denies: Dysuria, Burning, Pain Musculoskeletal: Reports: Leg Pain Skin: Reports: No Symptoms Neurological: Reports: No Symptoms, Dizziness (mild). Denies: Confusion Psychiatric: Reports: No Symptoms - Patient Data Vitals - Most Recent: Last Vital Signs Temp 98.2 F 02/17/18 03:45 Pulse 74 02/17/18 03:45 Resp 18 02/17/18 03:45 BP 109/63 02/17/18 03:45 Pulse Ox 97 02/17/18 03:45 Weight - Most Recent: 175 lb 7 oz I&O - Last 24 Hours: Intake & Output 02/16/18 02/16/18 02/17/18 14:59 22:59 06:59 Intake Total 507 587 8505 Output Total 750 325 750 Balance -250 -85 1980 Lab Results Last 24 Hours: Laboratory Results - last 24 hr 02/17/18 Range/Units 05:08 WBC 11.71 H (3.98-10.04) K/mm3 RBC 3.32 L (3.98-5.22) M/mm3 Hgb 9.6 L (11.2-15.7) gm/L Hct 30.2 L (34.1-44.9) % MCV 91.0 (79.4-94.8) fl MCH 28.9 (25.6-32.2) pg MCHC 31.8 L (32.2-35.5) g/dl RDW Std Deviation 40.8 (36.4-46.3) fL Plt Count 264 (182-369) K/mm3 MPV 9.2 L (9.4-12.3) fl Med Orders - Current: Current Medications Aspirin (Ecotrin) 325 mg PO BID [facility] Bisacodyl (Dulcolax) 5 mg PO DAILY PRN PRN Reason: Constipation Cholecalciferol (Vitamin D3) 5,000 unit PO DAILY [facility] Cyclobenzaprine HCl (Flexeril) 10 mg PO TID PRN PRN Reason: Spasms Last Admin: 02/16/18 21:16 Dose: 10 mg Diphenhydramine HCl (Benadryl) 25 mg IVPUSH Q6H PRN PRN Reason: pruritis Last Admin: 02/17/18 03:40 Dose: 25 mg Docusate Sodium (Colace) 100 mg PO BID [facility] Last Admin: 02/16/18 21:15 Dose: 100 mg Famotidine (Pepcid) 20 mg PO Q12H [facility] Last Admin: 02/16/18 21:17 Dose: 20 mg Cefazolin Sodium/Dextrose 2 gm (/ Premix) 50 mls @ 100 mls/hr IV Q8H [facility] Stop: 02/17/18 09:29 Last Admin: 02/17/18 00:10 Dose: 100 mls/hr Levothyroxine Sodium (Synthroid) 100 mcg PO ACBREAKFAST [facility] Last Admin: 02/17/18 06:21 Dose: 100 mcg Magnesium Hydroxide (Milk Of Magnesia) 30 ml PO BID PRN PRN Reason: Constipation Magnesium Oxide (Magnesium Oxide) 400 mg PO BEDTIME [facility] Last Admin: 02/16/18 22:02 Dose: 400 mg Morphine Sulfate (Morphine) 2 mg IVPUSH Q2H PRN PRN Reason: Breakthrough Pain Last Admin: 02/17/18 03:35 Dose: 2 mg Naloxone HCl (Narcan) 0.1 mg IVPUSH Q5M PRN PRN Reason: Oversedation Ondansetron HCl (Zofran) 4 mg IVPUSH Q6H PRN PRN Reason: Nausea/Vomiting Oxycodone/Acetaminophen (Percocet 325-5 Mg) 1 - 2 tab PO Q4H PRN PRN Reason: Pain Last Admin: 02/17/18 06:21 Dose: 2 tab Senna (Senna) 8.6 mg PO BID PRN PRN Reason: Constipation Venlafaxine HCl (Effexor Xr) 150 mg PO DAILY [facility] Discontinued Medications Acetaminophen (Tylenol) 975 mg PO ONETIME [facility] Stop: 02/16/18 18:00 Last Admin: 02/16/18 09:15 Dose: 975 mg Bupivacaine HCl (Marcaine 0.25%) Confirm Administered Dose 30 ml .ROUTE .STK- MED ONE Stop: 02/16/18 08:55 Last Admin: 02/16/18 11:15 Dose: 30 ml Bupivacaine HCl/Dextrose (Marcaine 0.75% Spinal) Confirm Administered Dose 2 ml .ROUTE .STK-MED ONE Stop: 02/16/18 07:28 Cefazolin Sodium (Ancef) Confirm Administered Dose 2 gm .ROUTE .STK-MED ONE Stop: 02/16/18 07:28 Last Admin: 02/16/18 11:10 Dose: 2 gm Cefazolin Sodium (Ancef) Confirm Administered Dose 2 gm .ROUTE .STK-MED ONE Stop: 02/16/18 08:54 Morphine Sulfate 8 mg/Epinephrine HCl 0.3 mg/Cefuroxime Sodium 750 mg/Ketorolac Tromethamine 30 mg/Sodium Chloride 27.9 ml 0 mg .XX ONETIME ONE Stop: 02/16/18 11:01 Last Admin: 02/16/18 16:08 Dose: Not Given Dexamethasone (Dexamethasone) Confirm Administered Dose 4 mg .ROUTE .STK-MED ONE Stop: 02/16/18 07:28 Diphenhydramine HCl (Benadryl) 25 mg IVPUSH Q6H PRN PRN Reason: pruritis Stop: 02/16/18 12:30 Last Admin: 02/16/18 13:04 Dose: 25 mg Ephedrine Sulfate (Ephedrine Sulfate) 5 mg IVPUSH ASDIRECTED PRN PRN Reason: Hypotension Stop: 02/16/18 12:30 Ephedrine Sulfate (Ephedrine In Ns) Confirm Administered Dose 25 mg .ROUTE .STK- MED ONE Stop: 02/16/18 11:12 Epinephrine HCl (Adrenalin) Confirm Administered Dose 1 mg .ROUTE .STK-MED ONE Stop: 02/16/18 07:35 Fentanyl (Sublimaze) Confirm Administered Dose 100 mcg .ROUTE .STK-MED ONE Stop: 02/16/18 07:28 Fentanyl (Sublimaze) 50 mcg IVPUSH Q5M PRN PRN Reason: Pain Stop: 02/16/18 12:30 Haloperidol Lactate (Haldol) 1 mg IVPUSH ONETIME PRN PRN Reason: PERSISTENT NAUSEA Stop: 02/16/18 12:30 Hydromorphone HCl (Dilaudid) 0.5 mg IVPUSH ONETIME PRN PRN Reason: Pain Stop: 02/16/18 12:30 Lactated Ringer's (Ringers, Lactated) 1,000 mls @ 125 mls/hr IV ASDIRECTED [facility] Stop: 02/16/18 23:00 Last Admin: 02/16/18 09:15 Dose: 125 mls/hr Lidocaine HCl (Xylocaine-Mpf 1%) Confirm Administered Dose 14 mls @ as directed .ROUTE .STK-MED ONE Stop: 02/16/18 07:28 Lactated Ringer's (Ringers, Lactated) Confirm Administered Dose 1,000 mls @ as directed .ROUTE .STK-MED ONE Stop: 02/16/18 07:28 Phenylephrine HCl 1 mg/ Sodium (Chloride) 10.1 mls @ 1 mls/sec IV TITRATE [facility]; Protocol Stop: 02/16/18 12:30 Lactated Ringer's (Ringers, Lactated) Confirm Administered Dose 1,000 mls @ as directed .ROUTE .STK-MED ONE Stop: 02/16/18 10:44 Iodine (Iodine 2% Mild Tincture) Confirm Administered Dose 30 ml .ROUTE .STK- MED ONE Stop: 02/16/18 08:55 Last Admin: 02/16/18 11:08 Dose: 18 ml Ketamine HCl (Ketalar) Confirm Administered Dose 500 mg .ROUTE .STK-MED ONE Stop: 02/16/18 10:26 Ketorolac Tromethamine (Toradol) 15 mg IVPUSH Q6H PRN PRN Reason: Pain Last Admin: 02/17/18 03:37 Dose: 15 mg Ketorolac Tromethamine (Toradol) Confirm Administered Dose 30 mg .ROUTE .STK- MED ONE Stop: 02/16/18 07:28 Lidocaine/Sodium Bicarbonate (Buffered Lidocaine 1% In Ns 8.4%) 0.25 ml IDERM ONETIME PRN PRN Reason: Prior to IV Start Stop: 02/16/18 18:00 Last Admin: 02/16/18 09:15 Dose: 0.25 ml Magnesium Oxide (Magnesium Oxide) 400 mg PO DAILY [facility] Meperidine HCl (Meperidine) 12.5 mg IVPUSH ONETIME PRN PRN Reason: shivering Stop: 02/16/18 12:30 Midazolam HCl (Versed 1 Mg/Ml) Confirm Administered Dose 2 mg .ROUTE .STK-MED ONE Stop: 02/16/18 07:28 Midazolam HCl (Versed 1 Mg/Ml) 2 mg IVPUSH ONETIME PRN PRN Reason: Sedation Stop: 02/16/18 12:30 Ondansetron HCl (Zofran) Confirm Administered Dose 4 mg .ROUTE .STK-MED ONE Stop: 02/16/18 07:28 Ondansetron HCl (Zofran) 4 mg IVPUSH ONETIME PRN PRN Reason: Nausea/Vomiting Stop: 02/16/18 12:30 Oxycodone HCl (Oxycontin) 10 mg PO ONETIME [facility] Stop: 02/16/18 18:00 Last Admin: 02/16/18 09:14 Dose: 10 mg Phenylephrine HCl (Phenylephrine In Ns 100 Mcg/Ml) Confirm Administered Dose 1 mg .ROUTE .STK-MED ONE Stop: 02/16/18 10:38 Pregabalin (Lyrica) 50 mg PO ONETIME [facility] Stop: 02/16/18 18:00 Last Admin: 02/16/18 09:14 Dose: 50 mg Propofol (Diprivan 20 Ml) Confirm Administered Dose 400 mg .ROUTE .STK-MED ONE Stop: 02/16/18 07:28 Ropivacaine (Naropin 0.5%) Confirm Administered Dose 30 ml .ROUTE .STK-MED ONE Stop: 02/16/18 07:35 Sodium Chloride (Saline Flush) 10 ml FLUSH ASDIRECTED PRN PRN Reason: Keep Vein Open Stop: 02/16/18 18:00 Tranexamic Acid (Cyklokapron) Confirm Administered Dose 1,000 mg .ROUTE .STK- MED ONE Stop: 02/16/18 08:54 Last Admin: 02/16/18 11:17 Dose: 1,000 mg Vancomycin HCl (Vancomycin) Confirm Administered Dose 1 gm .ROUTE .STK-MED ONE Stop: 02/16/18 08:54 Last Admin: 02/16/18 11:16 Dose: 1 gm - Exam Quality Assessment: DVT Prophylaxis. No: Supplemental Oxygen, Urine Catheter General: Alert, Oriented, Cooperative, No Acute Distress HEENT: Pupils Equal, Pupils Reactive, EOMI, Mucous Membr. Moist/[place] Neck: Supple, Trachea Midline, No JVD Lungs: Clear to Auscultation, Normal Respiratory Effort Cardiovascular: Regular Rate, Regular Rhythm GI/Abdominal Exam: Normal Bowel Sounds, Soft, Non-Tender, No Distention (Female) Exam: Deferred Back Exam: Normal Inspection, Full Range of Motion Extremities: No Pedal Edema, Normal Capillary Refill, Leg Pain, Limited Range of Motion, Other (AIDEN Bandage in place on right leg. Cooling pack in place ) Peripheral Pulses: 2+: Radial (L), Radial (R), Dorsalis Pedis (L), Dorsalis Pedis (R) Skin: Warm, Dry, Intact Wound/Incisions: Dressing Dry and Intact, No Drainage Neurological: No New Focal Deficit Psy/Mental Status: Alert, Normal Affect, Normal Mood Consult PN Assessment/Plan POD#: 1 Procedures: Procedures ASSAY OF MAGNESIUM (09/13/17) COMPLETE CBC W/AUTO DIFF WBC (09/13/17) COMPREHEN METABOLIC PANEL (09/13/17) CT HEAD/BRAIN W/O DYE (09/13/17) EMERGENCY DEPT VISIT (02/01/18) EMERGENCY DEPT VISIT (12/23/13) FIBRIN DEGRADATION QUANT (12/25/17) HYDRATE IV INFUSION ADD-ON (09/13/17) IMMUNIZATION ADMIN (02/01/18) ROUTINE VENIPUNCTURE (12/25/17) RPR S/N/AX/GEN/TRNK 2.5CM/< (02/01/18) TDAP VACCINE 7 YRS/> IM (02/01/18) THER/PROPH/DIAG INJ IV PUSH (09/13/17) THER/PROPH/DIAG INJ SC/IM (09/26/13) TX/PRO/DX INJ NEW DRUG ADDON (09/13/17) TX/PRO/DX INJ SAME DRUG SCHEDULING ANALYST (09/13/17) X-RAY EXAM L-S SPINE 2/3 VWS (06/14/14) X-RAY EXAM NECK SPINE 2-3 VW (04/04/14) X-RAY EXAM OF FOOT (02/01/18) (1) Status post total right knee replacement SNOMED Code(s): 0553509206775 Code(s): Z96.651 - PRESENCE OF RIGHT ARTIFICIAL KNEE JOINT Priority: High Current Visit: Yes (2) Depression SNOMED Code(s): 16867023 Code(s): F32.9 - MAJOR DEPRESSIVE DISORDER, SINGLE EPISODE, UNSPECIFIED Priority: Low Current Visit: No Qualifiers: Depression Type: unspecified Qualified Code(s): F32.9 - Major depressive disorder, single episode, unspecified (3) Hypothyroid SNOMED Code(s): 07709414 Code(s): E03.9 - HYPOTHYROIDISM, UNSPECIFIED Priority: Low Current Visit : No Qualifiers: Hypothyroidism type: unspecified Qualified Code(s): E03.9 - Hypothyroidism , unspecified (4) Chronic low back pain SNOMED Code(s): 456341861 Code(s): M54.5 - LOW BACK PAIN; G89.29 - OTHER CHRONIC PAIN Priority: Low Current Visit: No Problem List Initiated/Reviewed/Updated: Yes Plan: I/P: Acute: S/P right total knee arthroplasty - post-operative day 1 -DVT prophylaxis and pain management per primary care team -PT/OT -IS/RT -Monitor oxygen saturation -Titrate oxygen as needed -Vital signs stable -Monitor labs -Pre-operative Hgb was 12.5, Now 9.6 -Pre-operative GFR was 69, Now 53 Osteoarthritis of right knee -Pain management per primary care team Chronic: Hypothyroid Depression Plan: CM for discharge planning GI prophylaxis Home medications as indicated Other orders as listed above Routine AM labs She is a full code. Her PCP is Dr. Lombardo. From a hospitalist standpoint Kimber is doing well. She has been working with therapies. She has urinated and was weaned off oxygen. Her vital signs and labs remain stable. No concerns form nursing or patient. She is cleared for discharge pending primary care team and PT/OT approval. Thank you for allowing us to participate in the care of this patient!!
--- NOTE | 2018-02-17 07:55 | PCM.SURGPN ---
- General Info Date of Service: 02/17/18 POD#: 1 Functional Status: Reports: Pain Controlled, Tolerating Diet, Ambulating, Urinating, Incentive Spirometry, Other (The pt states she noted pain at 3:30am. She has received pain medication.) - Patient Data Vitals - Most Recent: Last Vital Signs Temp 98.2 F 02/17/18 03:45 Pulse 74 02/17/18 03:45 Resp 18 02/17/18 03:45 BP 109/63 02/17/18 03:45 Pulse Ox 97 02/17/18 03:45 Weight - Most Recent: 175 lb 7 oz I&O - Last 24 Hours: Intake & Output 02/16/18 02/17/18 02/17/18 22:59 06:59 14:59 Intake Total 240 2730 Output Total 325 750 Balance -85 1980 Lab Results Last 24 Hrs: Laboratory Results - last 24 hr 02/17/18 Range/Units 05:08 WBC 11.71 H (3.98-10.04) K/mm3 RBC 3.32 L (3.98-5.22) M/mm3 Hgb 9.6 L (11.2-15.7) gm/L Hct 30.2 L (34.1-44.9) % MCV 91.0 (79.4-94.8) fl MCH 28.9 (25.6-32.2) pg MCHC 31.8 L (32.2-35.5) g/dl RDW Std Deviation 40.8 (36.4-46.3) fL Plt Count 264 (182-369) K/mm3 MPV 9.2 L (9.4-12.3) fl Med Orders - Current: Current Medications Aspirin (Ecotrin) 325 mg PO BID [facility] Bisacodyl (Dulcolax) 5 mg PO DAILY PRN PRN Reason: Constipation Cholecalciferol (Vitamin D3) 5,000 unit PO DAILY [facility] Cyclobenzaprine HCl (Flexeril) 10 mg PO TID PRN PRN Reason: Spasms Last Admin: 02/16/18 21:16 Dose: 10 mg Diphenhydramine HCl (Benadryl) 25 mg IVPUSH Q6H PRN PRN Reason: pruritis Last Admin: 02/17/18 03:40 Dose: 25 mg Docusate Sodium (Colace) 100 mg PO BID [facility] Last Admin: 02/16/18 21:15 Dose: 100 mg Famotidine (Pepcid) 20 mg PO Q12H [facility] Last Admin: 02/16/18 21:17 Dose: 20 mg Cefazolin Sodium/Dextrose 2 gm (/ Premix) 50 mls @ 100 mls/hr IV Q8H [facility] Stop: 02/17/18 09:29 Last Admin: 02/17/18 00:10 Dose: 100 mls/hr Levothyroxine Sodium (Synthroid) 100 mcg PO ACBREAKFAST [facility] Last Admin: 02/17/18 06:21 Dose: 100 mcg Magnesium Hydroxide (Milk Of Magnesia) 30 ml PO BID PRN PRN Reason: Constipation Magnesium Oxide (Magnesium Oxide) 400 mg PO BEDTIME [facility] Last Admin: 02/16/18 22:02 Dose: 400 mg Morphine Sulfate (Morphine) 2 mg IVPUSH Q2H PRN PRN Reason: Breakthrough Pain Last Admin: 02/17/18 03:35 Dose: 2 mg Naloxone HCl (Narcan) 0.1 mg IVPUSH Q5M PRN PRN Reason: Oversedation Ondansetron HCl (Zofran) 4 mg IVPUSH Q6H PRN PRN Reason: Nausea/Vomiting Oxycodone/Acetaminophen (Percocet 325-5 Mg) 1 - 2 tab PO Q4H PRN PRN Reason: Pain Last Admin: 02/17/18 06:21 Dose: 2 tab Senna (Senna) 8.6 mg PO BID PRN PRN Reason: Constipation Venlafaxine HCl (Effexor Xr) 150 mg PO DAILY [facility] Discontinued Medications Acetaminophen (Tylenol) 975 mg PO ONETIME [facility] Stop: 02/16/18 18:00 Last Admin: 02/16/18 09:15 Dose: 975 mg Bupivacaine HCl (Marcaine 0.25%) Confirm Administered Dose 30 ml .ROUTE .STK- MED ONE Stop: 02/16/18 08:55 Last Admin: 02/16/18 11:15 Dose: 30 ml Bupivacaine HCl/Dextrose (Marcaine 0.75% Spinal) Confirm Administered Dose 2 ml .ROUTE .STK-MED ONE Stop: 02/16/18 07:28 Cefazolin Sodium (Ancef) Confirm Administered Dose 2 gm .ROUTE .STK-MED ONE Stop: 02/16/18 07:28 Last Admin: 02/16/18 11:10 Dose: 2 gm Cefazolin Sodium (Ancef) Confirm Administered Dose 2 gm .ROUTE .STK-MED ONE Stop: 02/16/18 08:54 Morphine Sulfate 8 mg/Epinephrine HCl 0.3 mg/Cefuroxime Sodium 750 mg/Ketorolac Tromethamine 30 mg/Sodium Chloride 27.9 ml 0 mg .XX ONETIME ONE Stop: 02/16/18 11:01 Last Admin: 02/16/18 16:08 Dose: Not Given Dexamethasone (Dexamethasone) Confirm Administered Dose 4 mg .ROUTE .STK-MED ONE Stop: 02/16/18 07:28 Diphenhydramine HCl (Benadryl) 25 mg IVPUSH Q6H PRN PRN Reason: pruritis Stop: 02/16/18 12:30 Last Admin: 02/16/18 13:04 Dose: 25 mg Ephedrine Sulfate (Ephedrine Sulfate) 5 mg IVPUSH ASDIRECTED PRN PRN Reason: Hypotension Stop: 02/16/18 12:30 Ephedrine Sulfate (Ephedrine In Ns) Confirm Administered Dose 25 mg .ROUTE .STK- MED ONE Stop: 02/16/18 11:12 Epinephrine HCl (Adrenalin) Confirm Administered Dose 1 mg .ROUTE .STK-MED ONE Stop: 02/16/18 07:35 Fentanyl (Sublimaze) Confirm Administered Dose 100 mcg .ROUTE .STK-MED ONE Stop: 02/16/18 07:28 Fentanyl (Sublimaze) 50 mcg IVPUSH Q5M PRN PRN Reason: Pain Stop: 02/16/18 12:30 Haloperidol Lactate (Haldol) 1 mg IVPUSH ONETIME PRN PRN Reason: PERSISTENT NAUSEA Stop: 02/16/18 12:30 Hydromorphone HCl (Dilaudid) 0.5 mg IVPUSH ONETIME PRN PRN Reason: Pain Stop: 02/16/18 12:30 Lactated Ringer's (Ringers, Lactated) 1,000 mls @ 125 mls/hr IV ASDIRECTED [facility] Stop: 02/16/18 23:00 Last Admin: 02/16/18 09:15 Dose: 125 mls/hr Lidocaine HCl (Xylocaine-Mpf 1%) Confirm Administered Dose 14 mls @ as directed .ROUTE .STK-MED ONE Stop: 02/16/18 07:28 Lactated Ringer's (Ringers, Lactated) Confirm Administered Dose 1,000 mls @ as directed .ROUTE .STK-MED ONE Stop: 02/16/18 07:28 Phenylephrine HCl 1 mg/ Sodium (Chloride) 10.1 mls @ 1 mls/sec IV TITRATE [facility]; Protocol Stop: 02/16/18 12:30 Lactated Ringer's (Ringers, Lactated) Confirm Administered Dose 1,000 mls @ as directed .ROUTE .STK-MED ONE Stop: 02/16/18 10:44 Iodine (Iodine 2% Mild Tincture) Confirm Administered Dose 30 ml .ROUTE .ST- MED ONE Stop: 02/16/18 08:55 Last Admin: 02/16/18 11:08 Dose: 18 ml Ketamine HCl (Ketalar) Confirm Administered Dose 500 mg .ROUTE .STK-MED ONE Stop: 02/16/18 10:26 Ketorolac Tromethamine (Toradol) 15 mg IVPUSH Q6H PRN PRN Reason: Pain Last Admin: 02/17/18 03:37 Dose: 15 mg Ketorolac Tromethamine (Toradol) Confirm Administered Dose 30 mg .ROUTE .ST- MED ONE Stop: 02/16/18 07:28 Lidocaine/Sodium Bicarbonate (Buffered Lidocaine 1% In Ns 8.4%) 0.25 ml IDERM ONETIME PRN PRN Reason: Prior to IV Start Stop: 02/16/18 18:00 Last Admin: 02/16/18 09:15 Dose: 0.25 ml Magnesium Oxide (Magnesium Oxide) 400 mg PO DAILY [facility] Meperidine HCl (Meperidine) 12.5 mg IVPUSH ONETIME PRN PRN Reason: shivering Stop: 02/16/18 12:30 Midazolam HCl (Versed 1 Mg/Ml) Confirm Administered Dose 2 mg .ROUTE .STK-MED ONE Stop: 02/16/18 07:28 Midazolam HCl (Versed 1 Mg/Ml) 2 mg IVPUSH ONETIME PRN PRN Reason: Sedation Stop: 02/16/18 12:30 Ondansetron HCl (Zofran) Confirm Administered Dose 4 mg .ROUTE .STK-MED ONE Stop: 02/16/18 07:28 Ondansetron HCl (Zofran) 4 mg IVPUSH ONETIME PRN PRN Reason: Nausea/Vomiting Stop: 02/16/18 12:30 Oxycodone HCl (Oxycontin) 10 mg PO ONETIME [facility] Stop: 02/16/18 18:00 Last Admin: 02/16/18 09:14 Dose: 10 mg Phenylephrine HCl (Phenylephrine In Ns 100 Mcg/Ml) Confirm Administered Dose 1 mg .ROUTE .STK-MED ONE Stop: 02/16/18 10:38 Pregabalin (Lyrica) 50 mg PO ONETIME [facility] Stop: 02/16/18 18:00 Last Admin: 02/16/18 09:14 Dose: 50 mg Propofol (Diprivan 20 Ml) Confirm Administered Dose 400 mg .ROUTE .STK-MED ONE Stop: 02/16/18 07:28 Ropivacaine (Naropin 0.5%) Confirm Administered Dose 30 ml .ROUTE .STK-MED ONE Stop: 02/16/18 07:35 Sodium Chloride (Saline Flush) 10 ml FLUSH ASDIRECTED PRN PRN Reason: Keep Vein Open Stop: 02/16/18 18:00 Tranexamic Acid (Cyklokapron) Confirm Administered Dose 1,000 mg .ROUTE .STK- MED ONE Stop: 02/16/18 08:54 Last Admin: 02/16/18 11:17 Dose: 1,000 mg Vancomycin HCl (Vancomycin) Confirm Administered Dose 1 gm .ROUTE .STK-MED ONE Stop: 02/16/18 08:54 Last Admin: 02/16/18 11:16 Dose: 1 gm - Exam Wound/Incisions: Dressing Dry and Intact General: Alert, Cooperative, No Acute Distress Lungs: Normal Respiratory Effort Extremities: Other (NVS intact for RLE. Ady's negative. ) - Problem List Review Problem List Initiated/Reviewed/Updated: Yes - My Orders Last 24 Hours: Active Orders 24 hr Category Date Time Status Cooling Warming Measures [RC] ASDIRECTED Care 02/16/18 10:30 Inactive Notify Provider [RC] 09,21 Care 02/16/18 10:30 Active Ready for Discharge [RC] PER UNIT ROUTINE Care 02/17/18 07:53 Ordered Vital Signs [RC] Q15M Care 02/16/18 10:29 Inactive Regular Diet [DIET] Diet 09/10/18 Lunch Active COMPREHENSIVE METABOLIC PN,CMP [CHEM] AM Lab 02/17/18 05:08 Received Acetaminophen/oxyCODONE [Percocet 325-5 MG] Med 02/16/18 13:00 Active 1 - 2 tab PO Q4H PRN Aspirin [Ecotrin] Med 02/17/18 09:00 Active 325 mg PO BID Bisacodyl [Dulcolax] Med 02/16/18 13:00 Active 5 mg PO DAILY PRN Cholecalciferol (Vitamin D3) [Vitamin D3] Med 02/17/18 09:00 Active 5,000 unit PO DAILY Cyclobenzaprine [Flexeril] Med 02/16/18 13:00 Active 10 mg PO TID PRN Docusate Sodium [Colace] Med 02/16/18 21:00 Active 100 mg PO BID Famotidine [Pepcid] Med 02/16/18 21:00 Active 20 mg PO Q12H Levothyroxine [Synthroid] Med 02/17/18 06:00 Active 100 mcg PO ACBREAKFAST Magnesium Hydroxide [Milk of Magnesia] Med 02/16/18 13:00 Active 30 ml PO BID PRN Magnesium Oxide Med 02/16/18 22:00 Active 400 mg PO BEDTIME Morphine Med 02/16/18 13:00 Active 2 mg IVPUSH Q2H PRN Naloxone [Narcan] Med 02/16/18 13:00 Active 0.1 mg IVPUSH Q5M PRN Ondansetron [Zofran] Med 02/16/18 13:00 Active 4 mg IVPUSH Q6H PRN Sennosides [Senna] Med 02/16/18 13:00 Active 8.6 mg PO BID PRN Venlafaxine [Effexor XR] Med 02/17/18 09:00 Active 150 mg PO DAILY ceFAZolin [Ancef] 2 gm Med 02/16/18 17:00 Active Premix Bag 1 bag IV Q8H diphenhydrAMINE [Benadryl] Med 02/16/18 15:33 Active 25 mg IVPUSH Q6H PRN Medication Orders Aspirin (Ecotrin) 325 mg PO BID [facility] Bisacodyl (Dulcolax) 5 mg PO DAILY PRN PRN Reason: Constipation Cholecalciferol (Vitamin D3) 5,000 unit PO DAILY [facility] Cyclobenzaprine HCl (Flexeril) 10 mg PO TID PRN PRN Reason: Spasms Last Admin: 02/16/18 21:16 Dose: 10 mg Diphenhydramine HCl (Benadryl) 25 mg IVPUSH Q6H PRN PRN Reason: pruritis Last Admin: 02/17/18 03:40 Dose: 25 mg Docusate Sodium (Colace) 100 mg PO BID [facility] Last Admin: 02/16/18 21:15 Dose: 100 mg Famotidine (Pepcid) 20 mg PO Q12H [facility] Last Admin: 02/16/18 21:17 Dose: 20 mg Cefazolin Sodium/Dextrose 2 gm (/ Premix) 50 mls @ 100 mls/hr IV Q8H [facility] Stop: 02/17/18 09:29 Last Admin: 02/17/18 00:10 Dose: 100 mls/hr Infusion: 02/16/18 17:14 Dose: 100 mls/hr Admin: 02/16/18 16:44 Dose: 100 mls/hr Levothyroxine Sodium (Synthroid) 100 mcg PO ACBREAKFAST [facility] Last Admin: 02/17/18 06:21 Dose: 100 mcg Magnesium Hydroxide (Milk Of Magnesia) 30 ml PO BID PRN PRN Reason: Constipation Magnesium Oxide (Magnesium Oxide) 400 mg PO BEDTIME [facility] Last Admin: 02/16/18 22:02 Dose: 400 mg Morphine Sulfate (Morphine) 2 mg IVPUSH Q2H PRN PRN Reason: Breakthrough Pain Last Admin: 02/17/18 03:35 Dose: 2 mg Naloxone HCl (Narcan) 0.1 mg IVPUSH Q5M PRN PRN Reason: Oversedation Ondansetron HCl (Zofran) 4 mg IVPUSH Q6H PRN PRN Reason: Nausea/Vomiting Oxycodone/Acetaminophen (Percocet 325-5 Mg) 1 - 2 tab PO Q4H PRN PRN Reason: Pain Last Admin: 02/17/18 06:21 Dose: 2 tab Admin: 02/17/18 00:16 Dose: 2 tab Admin: 02/16/18 19:01 Dose: 2 tab Admin: 02/16/18 14:51 Dose: 2 tab Senna (Senna) 8.6 mg PO BID PRN PRN Reason: Constipation Venlafaxine HCl (Effexor Xr) 150 mg PO DAILY [facility] - Assessment Assessment (Free Text/Narrative):: POD#1 - right TKA - Plan Plan (Free Text/Narrative):: 1. Hgb 9.6. 2. 325mg ASA PO BID, frequent mobility, TEDs. 3. Outpatient P.T. 4. Discharge to home today. The pt's case was discussed with Dr. Boswell and also visited with the pt today.
--- NOTE | 2018-02-17 07:59 | PCM.DCSUM1 ---
Discharge Summary - Hospital Course Brief History: Kimber is a 52 yo female who underwent right TKA with Dr. Boswell on 02-16-2018. The procedure was completed under spinal anesthesia. The pt tolerated the procedure well and was admitted to the Medical-Surgical Unit. Medical management was provided by the Hospitalist service. The pt's Hospital course was uneventful. The pt's Hgb on POD#1 was 9.6. On POD#1, 325mg ASA BID was initiated for VTE prophylaxis. SCDs and TEDs were also ordered. A Mepilex dressing was placed at the incision site at the time of surgery and remained clean and dry. The pt participated in P.T. and O.T. and progressed well. On POD#1, the pt was deemed appropriate to discharge to home. - Discharge Data Discharge Date: 02/17/18 Discharge Disposition: Home, Self-Care 01 Condition: Good - Patient Summary/Data Consults: Consultations 02/16/18 06:35 OT Evaluation and Treatment [CONS] Routine PT Evaluation and Treatment [CONS] Routine 02/16/18 06:36 Consult to Physician [CONS] Routine - Patient Instructions Diet: Usual Diet as Tolerated Activity: Apply Ice, As Tolerated, Elevate Extremity, Full Weight Bearing Driving: Do Not Drive Showering/Bathing: May Shower Wound/Incision Care: Keep Operative Site/Wound Site Clean and Dry, Do NOT Change Dressing Notify Provider of: Fever, Increased Pain, Swelling and Redness, Drainage, Nausea and/or Vomiting Other/Special Instructions: Please get up and moving around EVERY HOUR while awake. This helps to prevent blood clots. Have help with mobility as needed. Please take 325mg aspirin twice daily - this also helps to prevent blood clots. The medication is being used for blood clot prevention and not for pain control, so please use the medication twice daily as directed. Please wear the RENY hose during the day and you may remove them at night. Please schedule for P.T. Complete the P.T. exercises and stretches that were instructed in the Hospital. Please use the pain medication as needed. The medication may cause drowsiness and/or constipation. You could use a stool softener like docusate sodium or Colace 100mg twice daily and/or a laxative like Miralax daily for constipation. Contact your primary care provider for further instructions if you are constipated. Try to wean from use of the pain medication as soon as able. Please do not use other medications that may cause drowsiness (other pain medications, anxiety pills, sleeping pills, allergy medications that cause drowsiness) while using the pain medication. Please do not use alcohol while using the pain medication. Use the incentive spirometer often. Please place ice to the knee often. Please elevate the limb to decrease swelling. Keep the Mepilex dressing in place until follow-up. Please notify the Clinic if the dressing is saturated or rolls. Increase protein intake in your diet as this helps with healing. If you are a diabetic, please closely monitor your blood sugars and notify your primary care provider of your values. Elevated blood sugars increases the risk of infection. Please call [phone] with questions or concerns. - Discharge Plan *PRESCRIPTION DRUG MONITORING PROGRAM REVIEWED*: No *COPY OF PRESCRIPTION DRUG MONITORING REPORT IN PATIENT DIPESH: No Prescriptions/Med Rec: Acetaminophen/oxyCODONE [Percocet 325-5 MG] 1 - 2 tab PO Q6H PRN #60 tablet PRN Reason: Pain Aspirin [Ecotrin] 325 mg PO BID #84 tab.ec Home Medications: Home Meds Cholecalciferol (Vitamin D3) [Vitamin D3] 5,000 unit PO DAILY 02/13/18 [History] Levothyroxine Sodium [Synthroid] 100 mcg PO DAILY 02/13/18 [History] Magnesium Oxide [Magnesium] 250 mg PO DAILY 02/13/18 [History] Venlafaxine HCl [Venlafaxine ER] 150 mg PO DAILY 02/13/18 [History] Acetaminophen/oxyCODONE [Percocet 325-5 MG] 1 - 2 tab PO Q6H PRN #60 tablet 03/26 [Rx] Aspirin [Ecotrin] 325 mg PO BID #84 tab.ec 02/16/18 [Rx] Bisacodyl [Dulcolax] 5 mg PO DAILY PRN tablet 02/16/18 [Rx] Docusate Sodium [Colace] 100 mg PO BID cap 02/16/18 [Rx] Famotidine [Pepcid] 20 mg PO Q12H tablet 02/16/18 [Rx] Magnesium Hydroxide [Milk of Magnesia] 30 ml PO BID PRN cup 02/16/18 [Rx] Sennosides [Senna] 8.6 mg PO BID PRN tablet 02/16/18 [Rx] Referrals: Monie Tejeda, KATIUSKA [Physician Critical Care Paramedic] - - Patient Data Vitals - Most Recent: Last Vital Signs Temp 98.2 F 02/17/18 03:45 Pulse 74 02/17/18 03:45 Resp 18 02/17/18 03:45 BP 109/63 02/17/18 03:45 Pulse Ox 97 02/17/18 03:45 Weight - Most Recent: 175 lb 7 oz I&O - Last 24 hours: Intake & Output 02/16/18 02/17/18 02/17/18 22:59 06:59 14:59 Intake Total 240 2730 Output Total 325 750 Balance -1979 Lab Results - Last 24 hrs: Laboratory Results - last 24 hr 02/17/18 02/17/18 Range/Units 05:08 05:08 WBC 11.71 H (3.98-10.04) K/mm3 RBC 3.32 L (3.98-5.22) M/mm3 Hgb 9.6 L (11.2-15.7) gm/L Hct 30.2 L (34.1-44.9) % MCV 91.0 (79.4-94.8) fl MCH 28.9 (25.6-32.2) pg MCHC 31.8 L (32.2-35.5) g/dl RDW Std Deviation 40.8 (36.4-46.3) fL Plt Count 264 (182-369) K/mm3 MPV 9.2 L (9.4-12.3) fl Sodium 140 (136-145) mEq/L Potassium 4.5 (3.5-5.1) mEq/L Chloride 105 (98-107) mEq/L Carbon Dioxide 31 (21-32) mEq/L Anion Gap 8.5 (5-15) BUN 14 (7-18) mg/dL Creatinine 1.1 H (0.55-1.02) mg/dL Est Cr Clr Drug Dosing 46.17 mL/min Estimated GFR (MDRD) 53 (>60) mL/min BUN/Creatinine Ratio 12.7 L (14-18) Glucose 125 H (74-106) mg/dL Calcium 8.9 (8.5-10.1) mg/dL Total Bilirubin 0.3 (0.2-1.0) mg/dL AST 21 (15-37) U/L ALT 33 (14-59) U/L Alkaline Phosphatase 48 (46-116) U/L Total Protein 5.8 L (6.4-8.2) g/dl Albumin 3.1 L (3.4-5.0) g/dl Globulin 2.7 gm/dL Albumin/Globulin Ratio 1.2 (1-2) Med Orders - Current: Current Medications Aspirin (Ecotrin) 325 mg PO BID [facility] Bisacodyl (Dulcolax) 5 mg PO DAILY PRN PRN Reason: Constipation Cholecalciferol (Vitamin D3) 5,000 unit PO DAILY [facility] [place] Cyclobenzaprine HCl (Flexeril) 10 mg PO TID PRN PRN Reason: Spasms Last Admin: 02/16/18 21:16 Dose: 10 mg Diphenhydramine HCl (Benadryl) 25 mg IVPUSH Q6H PRN PRN Reason: pruritis Last Admin: 02/17/18 03:40 Dose: 25 mg Docusate Sodium (Colace) 100 mg PO BID [facility] [place] Last Admin: 02/16/18 21:15 Dose: 100 mg Famotidine (Pepcid) 20 mg PO Q12H [facility] [place] Last Admin: 02/16/18 21:17 Dose: 20 mg Cefazolin Sodium/Dextrose 2 gm (/ Premix) 50 mls @ 100 mls/hr IV Q8H [facility] [place] Stop: 02/17/18 09:29 Last Admin: 02/17/18 00:10 Dose: 100 mls/hr Levothyroxine Sodium (Synthroid) 100 mcg PO ACBREAKFAST [facility] [place] Last Admin: 02/17/18 06:21 Dose: 100 mcg Magnesium Hydroxide (Milk Of Magnesia) 30 ml PO BID PRN PRN Reason: Constipation Magnesium Oxide (Magnesium Oxide) 400 mg PO BEDTIME [facility] [place] Last Admin: 02/16/18 22:02 Dose: 400 mg Morphine Sulfate (Morphine) 2 mg IVPUSH Q2H PRN PRN Reason: Breakthrough Pain Last Admin: 02/17/18 03:35 Dose: 2 mg Naloxone HCl (Narcan) 0.1 mg IVPUSH Q5M PRN PRN Reason: Oversedation Ondansetron HCl (Zofran) 4 mg IVPUSH Q6H PRN PRN Reason: Nausea/Vomiting Oxycodone/Acetaminophen (Percocet 325-5 Mg) 1 - 2 tab PO Q4H PRN PRN Reason: Pain Last Admin: 02/17/18 06:21 Dose: 2 tab Senna (Senna) 8.6 mg PO BID PRN PRN Reason: Constipation Venlafaxine HCl (Effexor Xr) 150 mg PO DAILY BETHANY Discontinued Medications Acetaminophen (Tylenol) 975 mg PO ONETIME BETHANY Stop: 02/16/18 18:00 Last Admin: 02/16/18 09:15 Dose: 975 mg Bupivacaine HCl (Marcaine 0.25%) Confirm Administered Dose 30 ml .ROUTE .STK- MED ONE Stop: 02/16/18 08:55 Last Admin: 02/16/18 11:15 Dose: 30 ml Bupivacaine HCl/Dextrose (Marcaine 0.75% Spinal) Confirm Administered Dose 2 ml .ROUTE .STK-MED ONE Stop: 02/16/18 07:28 Cefazolin Sodium (Ancef) Confirm Administered Dose 2 gm .ROUTE .STK-MED ONE Stop: 02/16/18 07:28 Last Admin: 02/16/18 11:10 Dose: 2 gm Cefazolin Sodium (Ancef) Confirm Administered Dose 2 gm .ROUTE .STK-MED ONE Stop: 02/16/18 08:54 Morphine Sulfate 8 mg/Epinephrine HCl 0.3 mg/Cefuroxime Sodium 750 mg/Ketorolac Tromethamine 30 mg/Sodium Chloride 27.9 ml 0 mg .XX ONETIME ONE Stop: 02/16/18 11:01 Last Admin: 02/16/18 16:08 Dose: Not Given Dexamethasone (Dexamethasone) Confirm Administered Dose 4 mg .ROUTE .STK-MED ONE Stop: 02/16/18 07:28 Diphenhydramine HCl (Benadryl) 25 mg IVPUSH Q6H PRN PRN Reason: pruritis Stop: 02/16/18 12:30 Last Admin: 02/16/18 13:04 Dose: 25 mg Ephedrine Sulfate (Ephedrine Sulfate) 5 mg IVPUSH ASDIRECTED PRN PRN Reason: Hypotension Stop: 02/16/18 12:30 Ephedrine Sulfate (Ephedrine In Ns) Confirm Administered Dose 25 mg .ROUTE .STK- MED ONE Stop: 02/16/18 11:12 Epinephrine HCl (Adrenalin) Confirm Administered Dose 1 mg .ROUTE .STK-MED ONE Stop: 02/16/18 07:35 Fentanyl (Sublimaze) Confirm Administered Dose 100 mcg .ROUTE .STK-MED ONE Stop: 02/16/18 07:28 Fentanyl (Sublimaze) 50 mcg IVPUSH Q5M PRN PRN Reason: Pain Stop: 02/16/18 12:30 Haloperidol Lactate (Haldol) 1 mg IVPUSH ONETIME PRN PRN Reason: PERSISTENT NAUSEA Stop: 02/16/18 12:30 Hydromorphone HCl (Dilaudid) 0.5 mg IVPUSH ONETIME PRN PRN Reason: Pain Stop: 02/16/18 12:30 Lactated Ringer's (Ringers, Lactated) 1,000 mls @ 125 mls/hr IV ASDIRECTED BETHANY Stop: 02/16/18 23:00 Last Admin: 02/16/18 09:15 Dose: 125 mls/hr Lidocaine HCl (Xylocaine-Mpf 1%) Confirm Administered Dose 14 mls @ as directed .ROUTE .STK-MED ONE Stop: 02/16/18 07:28 Lactated Ringer's (Ringers, Lactated) Confirm Administered Dose 1,000 mls @ as directed .ROUTE .STK-MED ONE Stop: 02/16/18 07:28 Phenylephrine HCl 1 mg/ Sodium (Chloride) 10.1 mls @ 1 mls/sec IV TITRATE BETHANY; Protocol Stop: 02/16/18 12:30 Lactated Ringer's (Ringers, Lactated) Confirm Administered Dose 1,000 mls @ as directed .ROUTE .STK-MED ONE Stop: 02/16/18 10:44 Iodine (Iodine 2% Mild Tincture) Confirm Administered Dose 30 ml .ROUTE .STK- MED ONE Stop: 02/16/18 08:55 Last Admin: 02/16/18 11:08 Dose: 18 ml Ketamine HCl (Ketalar) Confirm Administered Dose 500 mg .ROUTE .STK-MED ONE Stop: 02/16/18 10:26 Ketorolac Tromethamine (Toradol) 15 mg IVPUSH Q6H PRN PRN Reason: Pain Last Admin: 02/17/18 03:37 Dose: 15 mg Ketorolac Tromethamine (Toradol) Confirm Administered Dose 30 mg .ROUTE .STK- MED ONE Stop: 02/16/18 07:28 Lidocaine/Sodium Bicarbonate (Buffered Lidocaine 1% In Ns 8.4%) 0.25 ml IDERM ONETIME PRN PRN Reason: Prior to IV Start Stop: 02/16/18 18:00 Last Admin: 02/16/18 09:15 Dose: 0.25 ml Magnesium Oxide (Magnesium Oxide) 400 mg PO DAILY [facility] Meperidine HCl (Meperidine) 12.5 mg IVPUSH ONETIME PRN PRN Reason: shivering Stop: 02/16/18 12:30 Midazolam HCl (Versed 1 Mg/Ml) Confirm Administered Dose 2 mg .ROUTE .STK-MED ONE Stop: 02/16/18 07:28 Midazolam HCl (Versed 1 Mg/Ml) 2 mg IVPUSH ONETIME PRN PRN Reason: Sedation Stop: 02/16/18 12:30 Ondansetron HCl (Zofran) Confirm Administered Dose 4 mg .ROUTE .STK-MED ONE Stop: 02/16/18 07:28 Ondansetron HCl (Zofran) 4 mg IVPUSH ONETIME PRN PRN Reason: Nausea/Vomiting Stop: 02/16/18 12:30 Oxycodone HCl (Oxycontin) 10 mg PO ONETIME [facility] Stop: 02/16/18 18:00 Last Admin: 02/16/18 09:14 Dose: 10 mg Phenylephrine HCl (Phenylephrine In Ns 100 Mcg/Ml) Confirm Administered Dose 1 mg .ROUTE .STK-MED ONE Stop: 02/16/18 10:38 Pregabalin (Lyrica) 50 mg PO ONETIME BETHANY Stop: 02/16/18 18:00 Last Admin: 02/16/18 09:14 Dose: 50 mg Propofol (Diprivan 20 Ml) Confirm Administered Dose 400 mg .ROUTE .STK-MED ONE Stop: 02/16/18 07:28 Ropivacaine (Naropin 0.5%) Confirm Administered Dose 30 ml .ROUTE .STK-MED ONE Stop: 02/16/18 07:35 Sodium Chloride (Saline Flush) 10 ml FLUSH ASDIRECTED PRN PRN Reason: Keep Vein Open Stop: 02/16/18 18:00 Tranexamic Acid (Cyklokapron) Confirm Administered Dose 1,000 mg .ROUTE .STK- MED ONE Stop: 02/16/18 08:54 Last Admin: 02/16/18 11:17 Dose: 1,000 mg Vancomycin HCl (Vancomycin) Confirm Administered Dose 1 gm .ROUTE .[facility]-MED ONE Stop: 02/16/18 08:54 Last Admin: 02/16/18 11:16 Dose: 1 gm
[2018-02-17] MEDS: Famotidine 20 MG Tab PO SCH (08:47)
[2018-02-17] MEDS: Cyclobenzaprine 10 MG Tab PO PRN (08:47)
[2018-02-17] MEDS: Docusate Sodium 100 MG Cap PO SCH (08:47)
[2018-02-17] MEDS ORDERED: Magnesium Oxide 400 MG Tab PO SCH (09:00)
[2018-02-17] MEDS ORDERED: Cholecalciferol (Vitamin D3) 5,000 UNIT Tab PO SCH (09:00)
[2018-02-17] MEDS ORDERED: Venlafaxine 75 MG Cap.ER PO SCH (09:00)
[2018-02-17] MEDS ORDERED: Aspirin 325 MG Tab.EC PO SCH (09:00)
--- NOTE | 2018-02-25 12:41 | PCM.OPNOTE ---
- General Post-Op/Procedure Note Date of Surgery/Procedure: 02/16/18 Operative Procedure(s): right total knee arthroplasty Pre Op Diagnosis: right knee osteoarthritis Post-Op Diagnosis: Same Anesthesia Technique: Local, MAC, Spinal Primary Surgeon: Ino Boswell Anesthesia Provider: Jackie Jett Hydrate Control Tender: Monie Tejeda Hydrate Control Tender: Shyanne Hsu EBYamileth in mLs: 200 Complications: None Condition: Good
--- NOTE | 2018-02-25 13:10 | OR ---
DATE OF OPERATION: 02/16/2018 SURGEON: Ino Boswell MD OPERATION PERFORMED: Right total knee arthroplasty. PREOPERATIVE DIAGNOSIS: Right knee osteoarthrosis. POSTOPERATIVE DIAGNOSIS: Right knee osteoarthrosis. ANESTHESIA: Local MAC with spinal. ANESTHESIA PROVIDER: Jackie Jett. CHIEF OF PEDIATRIC UROLOGY: Monie Tejeda PA-C, and Shyanne Hsu LPN. ESTIMATED BLOOD LOSS: 200 mL. COMPLICATIONS: None. CONDITION: Stable. IMPLANTS: 1. [place] size 4 CR press-fit femur. 2. Svitlana size 4 press-fit tibial base plate. 3. Svitlana size 4 9 mm CS polyethylene component. 4. [place] size 32 x 10 mm press-fit patella. DESCRIPTION OF PROCEDURE: The patient was identified in the preop holding area. Proper site was marked and identified by the surgeon. The patient was taken back to the operating theater. After adequate anesthesia, the patient's right lower extremity had a nonsterile tourniquet applied and it was then sterilely prepped and draped in the usual sterile fashion. OR timeout was performed. The patient received 2 g IV Ancef. At this time, right lower extremity was exsanguinated. Tourniquet was insufflated to 300 mmHg. Standard medial parapatellar incision was made. Medial parapatellar arthrotomy was created. Deep fibers of the MCL were raised and anterior fat pad was resected. At this time, attention was turned to the patella. Patella measured 23, it was resected to a 13 for a 32 x 10 mm patella. Drill holes were then drilled and found to be in adequate position. The drill was then drilled in the distal femur and the intramedullary distal femoral cutting guide was then placed. 8 mm was resected off the distal femur and was found to be an adequate resection. Sizing guide was placed. It was found to be a size 4 femur that was shown on the implant record at the beginning of this dictation. The drill holes were drilled for the epicondylar axis using Whitesides line and epicondyles as reference. At this time, the 4-in-1 cutting block was placed. An anterior posterior and anterior and posterior chamfer cuts were then completed. Attention was turned to the tibia. The posterior medial lateral retractors were placed. The extramedullary tibial guide was placed. It was placed in the old footprint of the ACL. It was aligned with the center of the ankle and 0 degrees of slope, 9 mm was then resected off the unaffected lateral side. There was found to be an acceptable reduction. At this time, posterior osteophytes were removed along with medial and lateral meniscus. A trial implant was placed with a correct sized tibia that was mentioned at the beginning of the dictation. A Svitlana size 4 9 mm CS polyethylene component was then placed. The patient's knee was brought through range of motion. The patella was tracking centrally and was stable to varus and valgus stress. Alignment was found to be roughly at 0 degrees. At this time, cement was mixed on the back table. The tibia was stamped and drilled in proper rotation. The universal tibial base plate was impacted in place. Next, the [place] size 4 CR press-fit femur was impacted into place and the [place] size 4 9 mm CS polyethylene component was placed. The patient's knee was brought into full extension. The patella was then press-fit in place at this time. Tourniquet was deflated. One liter dilute Betadine solution was irrigated through the knee along with 3 L of pulse lavage irrigation with Ancef. Periarticular injection was then completed. The patient's knee was brought through a range of motion. Once the cement had time to set up and it was found to be stable to varus valgus stress, the patella was tracking centrally with full range of motion. At this time, a #2 barbed suture was used for closure of the medial parapatellar arthrotomy. Topical tranexamic acid was placed. 2-0 Vicryl was used subcutaneously, a running 3-0 Monocryl was used subcuticularly. The patient tolerated the procedure well and was sent to the PACU in stable condition. MMJONG /[id number] JO
== END 2018-02-17 13:20 | disposition home or self-care (01) | DRG 302 ==
LOC: JD.SDS 08:44 → JD.MS 08:45 → JD.SDS 08:46 → JD.MS 02-17 04:57
PROVIDERS: ADMIT Family Medicine; ATTEND Orthopaedic Surgery
PROC: 0SRC0JA Replacement of Right Knee Joint with Synthetic Substitute, Uncemented, Open Approach (ICD-10-PCS; principal; 2018-02-16)
PROC: 3E0T3BZ Introduction of Anesthetic Agent into Peripheral Nerves and Plexi, Percutaneous Approach (ICD-10-PCS; 2018-02-16)
DX: M17.11 Unilateral primary osteoarthritis, right knee (principal); E03.9 Hypothyroidism, unspecified; F32.9 Major depressive disorder, single episode, unspecified; H54.7 Unspecified visual loss; G43.909 Migraine, unspecified, not intractable, without status migrainosus; G25.81 Restless legs syndrome; M25.761 Osteophyte, right knee; R42 Dizziness and giddiness; G89.18 Other acute postprocedural pain; K59.00 Constipation, unspecified; F41.9 Anxiety disorder, unspecified; Z88.8 Allergy status to other drugs, medicaments and biological substances; Z87.891 Personal history of nicotine dependence; Z90.710 Acquired absence of both cervix and uterus; Z88.6 Allergy status to analgesic agent; Z79.82 Long term (current) use of aspirin; Z79.899 Other long term (current) drug therapy
CPT/HCPCS: 01402; 36415; 64450; 73560-26-RT; 73560-RT; 80053; 85027; 87641; 97110-GP; 97116-GP; 97161-GP; 97165-GO; 97535-GO; A9270-GY; C1776; J0171; J0690; J0697; J1100; J1200; J1885; J2001; J2250; J2270; J2370; J2405; J2704; J2795; J3010; J3370; J3490; J7050; J7120

== ENCOUNTER 2018-03-03 19:22 | Emergency (ER) | payer BC ==
[2018-03-03] MEDS ORDERED: Sodium Chloride 0.9% 10 ML Syringe FLUSH PRN (20:09)
[2018-03-03] MEDS ORDERED: Ondansetron 4 MG/2 ML SDV IVPUSH ONE (20:09)
[2018-03-03] MEDS ORDERED: Sodium Chloride 0.9% 500 ML IV ONE ×2 (20:25→21:34)
--- NOTE | 2018-03-03 20:28 | EDM.PDOC ---
<Mandy Lowe - Last Filed: 03/03/18 21:04> ED HPI GENERAL MEDICAL PROBLEM - General Chief Complaint: Neurological Problem Stated Complaint: VOMITING DIZZY Time Seen by Provider: 03/03/18 19:35 Source of Information: Reports: Patient History Limitations: Reports: No Limitations. Denies: Altered Mental Status - History of Present Illness INITIAL COMMENTS - FREE TEXT/NARRATIVE: Kimber is a 52-year-old female who reports sudden onset of "dizziness" and while at her 2-week post-op visit at 10am this morning. She had a right knee replacement two weeks ago, with no complications. She is currently taking Percocet 325/5 for pain. Kimber describes the dizziness as a feeling of light-headedness. She did initially report some sensation of spinning, but this does not characterize her dizziness as she is no longer experiencing a sensation of movement. She also reports blurred vision, nausea/vomiting, and diaphoresis. Due to the nausea/ vomiting, she has not been able to take any of her medications today. She developed a mild, dull, posterior headache approximately 1 hour prior to arrival. She denies chest pain, shortness of breath, difficulty walking, imbalance, hearing loss, and ear pain. No syncope or near-syncope. She does report a recent history of vertigo within the past 6 months. Her current symptoms are not similar to those she experienced with vertigo. The vertigo resolved with chiropractic manipulation and BPPV maneuvers. Kimber also reports a history of infrequent migraine headaches, which are not similar to her current symptoms. With migraines, she typically experiences severe, band- like headache with photophobia. Family history is significant for father with AR in 40s and strokes at age 75, and mother with a DVT. Pt denies personal history of heart disease, valvular disease, congenital heart disease, and blood clots. No personal history of hypertension or smoking. No use of hormonal therapy. Onset: Today, Sudden Severity: Severe Improves with: Reports: None Worsens with: Reports: Movement Context: Reports: Other (recent surgery - right knee replacement 2 weeks ago) Associated Symptoms: Reports: Diaphoresis, Headaches (dull posterior headache, mild), Nausea/Vomiting. 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 Posterior Headache Pain Score (Numeric/FACES): 6 - Related Data Allergies Allergy/AdvReac Type Severity Reaction Status Date / Time promethazine Allergy Cannot Verified 03/03/18 20:05 Remember alendronate sodium AdvReac Nausea and Verified 03/03/18 20:05 Vomiting tramadol HCl [From Ultram] AdvReac Nausea and Verified 03/03/18 20:05 Vomiting Home Meds: Home Meds Cholecalciferol (Vitamin D3) [Vitamin D3] 5,000 unit PO DAILY 02/13/18 [History] Levothyroxine Sodium [Synthroid] 100 mcg PO DAILY 02/13/18 [History] Magnesium Oxide [Magnesium] 250 mg PO DAILY 02/13/18 [History] Venlafaxine HCl [Venlafaxine ER] 150 mg PO DAILY 02/13/18 [History] Acetaminophen/oxyCODONE [Percocet 325-5 MG] 1 - 2 tab PO Q6H PRN #60 tablet 03/26 [Rx] Aspirin [Ecotrin] 325 mg PO BID #84 tab.ec 02/16/18 [Rx] Bisacodyl [Dulcolax] 5 mg PO DAILY PRN tablet 02/16/18 [Rx] Docusate Sodium [Colace] 100 mg PO BID cap 02/16/18 [Rx] Famotidine [Pepcid] 20 mg PO Q12H tablet 02/16/18 [Rx] Magnesium Hydroxide [Milk of Magnesia] 30 ml PO BID PRN cup 02/16/18 [Rx] Sennosides [Senna] 8.6 mg PO BID PRN tablet 02/16/18 [Rx] Past Medical History HEENT History: Reports: Impaired Vision Cardiovascular History: Reports: None Respiratory History: Reports: None Gastrointestinal History: Reports: GERD 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: Reports: 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, Fibroids Musculoskeletal History: Reports: Osteoarthritis Neurological History: Reports: Migraines, Other (See Below) Other Neuro History: restless leg syndrome Psychiatric History: Reports: Anxiety, Depression Endocrine/Metabolic History: Reports: Hypothyroidism Hematologic History: Reports: None Immunologic History: Reports: None Oncologic (Cancer) History: Reports: None Dermatologic History: Reports: None - Past Surgical History Head Surgeries/Procedures: Reports: None HEENT Surgical History: Reports: Adenoidectomy, Oral Surgery, Tonsillectomy Cardiovascular Surgical History: Reports: None Respiratory Surgical History: Reports: None GI Surgical History: Reports: Colonoscopy Female Surgical History: Reports: Breast Reconstruction, Hysterectomy, Other (See Below) Other Female Surgeries/Procedures: breast reduction Endocrine Surgical History: Reports: None Musculoskeletal Surgical History: Reports: Arthroscopic Procedure, Carpal Tunnel , Knee Replacement, Other (See Below) Other Musculoskeletal Surgeries/Procedures:: bladder mesh; carpel tunnel surgery Oncologic Surgical History: Reports: None Dermatological Surgical History: Reports: None Social & Family History - Family History Family Medical History: Noncontributory - Tobacco Use Smoking Status *Q: Never Smoker - Caffeine Use Caffeine Use: Reports: None Other Caffeine Use: 3 cups/day - Recreational Drug Use Recreational Drug Use: No ED ROS GENERAL - Review of Systems Constitutional: Reports: Diaphoresis. Denies: Fever, Chills, Weakness, Fatigue , Weight Loss HEENT: Reports: Vision Change (blurred vision). Denies: Ear Pain, Eye Pain Respiratory: Denies: Shortness of Breath Cardiovascular: Reports: Lightheadedness. Denies: Chest Pain, Blood Pressure Problem, Dyspnea on Exertion, Palpitations, Syncope GI/Abdominal: Reports: Vomiting. Denies: Abdominal Pain, Diarrhea Musculoskeletal: Reports: No Symptoms Skin: Reports: No Symptoms Neurological: Reports: Dizziness, Headache (posterior headache, mild). Denies: Confusion, Numbness, Syncope, Tingling, Trouble Speaking, Difficulty Walking, Weakness, Gait Disturbance Psychiatric: Reports: No Symptoms ED EXAM, NEURO - Physical Exam Text/Narrative:: Pt appears uncomfortable. No photophobia. Occasionally dry-heaving. Exam Limited By: No Limitations General Appearance: Alert, Moderate Distress Eye Exam: Bilateral Eye: EOMI, Normal Inspection, PERRL, Other (vision is 20/40 in left eye and 20/25 in right eye. No nystagmus. ) Ears: Normal External Exam, Hearing Grossly Normal, Normal TMs. No: Hearing Loss Throat/Mouth: Normal Inspection, Normal Oropharynx, Normal Voice Head Exam: No: Sinus Tenderness Neck: Normal Inspection, Non-Tender, Full Range of Motion. No: Lymphadenopathy (L), Thyromegaly Respiratory/Chest: Lungs Clear, Normal Breath Sounds, Chest Non-Tender Cardiovascular: Normal Peripheral Pulses, Regular Rate, Rhythm GI/Abdominal: Soft, Non-Tender Neurological: Alert, Normal Mood/Affect, Normal Dorsiflexion, CN II-XII Intact, Normal Plantar Flexion, Normal Gait, Normal Reflexes, No Motor/Sensory Deficits , Oriented x 3, Other (Normal Romberg, rapid alternating movements, and finger- to-nose. Pedro Pablo-Hallpike maneuver did not re-produce or exacerbate symptoms.). No : Ataxia DTR: 2+: Bicep (R), Bicep (L), Patella (R), Patella (L), Achilles (R), Achilles (L) Back Exam: Normal Inspection, Full Range of Motion Extremities: Normal Inspection (right knee in post-operative dressing), Normal Range of Motion Psychiatric: Normal Affect, Normal Mood Skin Exam: Warm, Dry, Normal Color. No: Jaundice, Pallor Course - Vital Signs Last Recorded V/S: Last Vital Signs Temp 97.7 F 03/03/18 22:16 Pulse 85 03/03/18 22:16 Resp 14 03/03/18 22:16 BP 128/79 03/03/18 22:16 Pulse Ox 95 03/03/18 22:16 - Orders/Labs/Meds Labs: Laboratory Tests 03/03/18 03/03/18 Range/Units 20:32 20:32 WBC 6.17 (3.98-10.04) K/mm3 RBC 3.84 L (3.98-5.22) M/mm3 Hgb 11.3 (11.2-15.7) gm/L Hct 34.0 L (34.1-44.9) % MCV 88.5 (79.4-94.8) fl MCH 29.4 (25.6-32.2) pg MCHC 33.2 (32.2-35.5) g/dl RDW Std Deviation 41.4 (36.4-46.3) fL Plt Count 361 (182-369) K/mm3 MPV 9.0 L (9.4-12.3) fl Neut % (Auto) 68.5 (34.0-71.1) % Lymph % (Auto) 22.0 (19.3-51.7) % Pitkin % (Auto) 9.1 (4.7-12.5) % Eos % (Auto) 0.2 L (0.7-5.8) Baso % (Auto) 0.0 L (0.1-1.2) % Neut # (Auto) 4.23 (1.56-6.13) K/mm3 Lymph # (Auto) 1.36 (1.18-3.74) K/mm3 Pitkin # (Auto) 0.56 H (0.24-0.36) K/mm3 Eos # (Auto) 0.01 L (0.04-0.36) K/mm3 Baso # (Auto) 0.00 L (0.01-0.08) K/mm3 Sodium 138 (136-145) mEq/L Potassium 3.6 (3.5-5.1) mEq/L Chloride 105 (98-107) mEq/L Carbon Dioxide 28 (21-32) mEq/L Anion Gap 8.6 (5-15) BUN 14 (7-18) mg/dL Creatinine 0.9 (0.55-1.02) mg/dL Est Cr Clr Drug Dosing 61.86 mL/min Estimated GFR (MDRD) > 60 (>60) mL/min BUN/Creatinine Ratio 15.6 (14-18) Glucose 103 (74-106) mg/dL Calcium 9.4 (8.5-10.1) mg/dL Total Bilirubin 0.5 (0.2-1.0) mg/dL AST 22 (15-37) U/L ALT 27 (14-59) U/L Alkaline Phosphatase 77 (46-116) U/L Total Protein 7.3 (6.4-8.2) g/dl Albumin 4.0 (3.4-5.0) g/dl Globulin 3.3 gm/dL Albumin/Globulin Ratio 1.2 (1-2) Meds: Medications Discontinued Medications Generic Name Dose Route Start Last Admin Trade Name Freq PRN Reason Stop Dose Admin Hydromorphone HCl 0.5 mg 03/03/18 21:34 03/03/18 21:48 Dilaudid IVPUSH 03/03/18 21:35 0.5 mg ONETIME ONE Administration Sodium Chloride 500 mls @ 999 mls/hr 03/03/18 20:25 03/03/18 20:37 Normal Saline IV 03/03/18 20:55 999 mls/hr .BOLUS ONE Administration Sodium Chloride 500 mls @ 999 mls/hr 03/03/18 21:34 03/03/18 21:49 Normal Saline IV 03/03/18 22:04 999 mls/hr .BOLUS ONE Administration Metoclopramide HCl 5 mg 03/03/18 21:34 03/03/18 21:48 Reglan IVPUSH 03/03/18 21:35 5 mg ONETIME ONE Administration Ondansetron HCl 4 mg 03/03/18 20:09 03/03/18 20:32 Zofran IVPUSH 03/03/18 20:10 4 mg ONETIME ONE Administration Sodium Chloride 10 ml 03/03/18 20:09 03/03/18 20:22 Saline Flush FLUSH 10 ml ASDIRECTED PRN Administration Keep Vein Open Departure - Departure Disposition: Home, Self-Care 01 Clinical Impression: Dizziness Anemia Qualifiers: Anemia type: unspecified type Qualified Code(s): D64.9 - Anemia, unspecified - Discharge Information Instructions: Anemia, Dizziness, [id number] Referrals: Fran Lombardo MD [Primary Care Provider] - Forms: ED Department Discharge Additional Instructions: clear liquids and very bland diet as tolerated until tomorrow afternoon, continue pepcid and other medications prescribed. Try taper oxycodone as discussed to 1/2 tablet with 500 mg tylenol q 8 to 12 hr to reduce the narcotic effect on your stomach and body. Your hgb was mildly low at 11.3. Start iron supplement if not already taking that and take twice daily. Follow up clinic as needed. Return to ED as needed if symptoms worsening in any way. <Alberto Gonzalez - Last Filed: 03/07/18 11:22> ED ROS GENERAL - Review of Systems Review Of Systems: See Below : Reports: No Symptoms Musculoskeletal: Denies: Leg Pain, Joint Pain ED EXAM, NEURO - Physical Exam Exam: See Below Neck: Supple Respiratory/Chest: No Respiratory Distress Course - Re-Assessments/Exams Free Text/Narrative Re-Assessment/Exam: 03/03/18 21:37 Initial Hx and exam was done by Mandy Gill 4th year medical student. I have also interviewed, examined patient. I agree with hx and exam as documented. labs are relatively normal, hgb 11.3. EKG was normal. Zofran has helped some but still does feel somewhat nauseated. Will bolus another 500 NS, give reglan 5 mg IV and dilaudid IV so she does not have to take percocet this evening. Discharge instr. as documented. 03/07/18 11:20 Departure - Departure Time of Disposition: 21:40 Condition: Fair
[2018-03-03] MEDS ORDERED: Metoclopramide 10 MG/2 ML SDV IVPUSH ONE (21:34)
[2018-03-03] MEDS ORDERED: HYDROmorphone 0.5 MG/0.5 ML SYRINGE IVPUSH ONE (21:34)
== END 2018-03-03 22:16 | disposition home or self-care (01) ==
LOC: JD.ED 19:22
DX: D64.9 Anemia, unspecified (principal); E03.9 Hypothyroidism, unspecified; K21.9 Gastro-esophageal reflux disease without esophagitis; Z79.899 Other long term (current) drug therapy; Z88.6 Allergy status to analgesic agent; Z88.8 Allergy status to other drugs, medicaments and biological substances
CPT/HCPCS: 36415; 80053; 85025; 93005; 96361; 96374; 96375; 99284; J1170; J2405; J2765; J7040; J7050

== ENCOUNTER → 2020-04-24 | Day surgery (SDC) | payer BC ==
[~2020-04-24] MED LIST changes: -Acetaminophen 325 MG Tab PO SCH; +Bupivacaine 0.25% 10 ML SDV ONE; -Bupivacaine 0.75%/D5W 2 ML Amp ONE; -Dexamethasone 4 MG/ML SDV ONE; -EPINEPHrine 1 MG/ML SDV ONE; -Ketorolac 30 MG/ML SDV ONE; -Lactated Ringers 1,000 ML ONE; -Lidocaine 1% 14 ML ONE; +Lidocaine 1% 30 ML SDV ONE; +Lidocaine 1% 4 ML ONE; -Pregabalin 25 MG Cap PO SCH; -Ropivacaine 0.5% 5 MG/ML 30 ML SDV ONE; -oxyCODONE ER 10 MG TAB.ER PO SCH
--- NOTE | 2020-04-24 06:48 | PCM.PREANE ---
Preanesthetic Assessment - Procedure Proposed Procedure: Left carpal tunnel release - Anesthesia/Transfusion/Family Hx Anesthesia History: Prior Anesthesia Reaction (woke up on table with first back surgery, nausea) Other Type of Anesthesia Reaction Comment: woken up previously during a back surgery Family History of Anesthesia Reaction: No Transfusion History: Prior Transfusion Without Reaction Intubation History: Unknown - Review of Systems General: No Symptoms Pulmonary: No Symptoms Cardiovascular: No Symptoms Gastrointestinal: Nausea Neurological: Numbness (toes and hands "left foot") Other: Reports: Thyroid Problems (hypothyroid), Neck Pain (bulged disk), Anxiety - Physical Assessment NPO Status Date: 04/23/20 NPO Status Time: 00:00 Height: 1.78 m Weight: 80.286 kg ASA Class: 2 Mental Status: Alert & Oriented x3 Airway Class: Mallampati = 1 Dentition: Reports: Normal Dentition Thyro-Mental Finger Breadths: 3 Mouth Opening Finger Breadths: 3 ROM/Head Extension: Full Lungs: Clear to Auscultation, Normal Respiratory Effort Cardiovascular: Regular Rate, Regular Rhythm - Lab Values: Laboratory Last Values MRSA (PCR) Negative 04/12/20 11:28 - Allergies Allergies/Adverse Reactions: Allergies Allergy/AdvReac Type Severity Reaction Status Date / Time promethazine Allergy Cannot Verified 05/15/18 12:47 Remember alendronate sodium AdvReac Nausea and Verified 05/15/18 12:47 Vomiting tramadol HCl [From Ultram] AdvReac Nausea and Verified 05/15/18 12:47 Vomiting - Blood Blood Available: No Product(s) Available: None - Anesthesia Plan Pre-Op Medication Ordered: None - Acknowledgements Anesthesia Type Planned: MAC Pt an Appropriate Candidate for the Planned Anesthesia: Yes Alternatives and Risks of Anesthesia Discussed w Pt/Guardian: Yes Pt/Guardian Understands and Agrees with Anesthesia Plan: Yes PreAnesthesia Questionnaire HEENT History: Reports: Impaired Vision Other HEENT History: glasses for reading Cardiovascular History: Reports: None Respiratory History: Reports: None Gastrointestinal History: Reports: GERD 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: Reports: 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, Fibroids Musculoskeletal History: Reports: Osteoarthritis Neurological History: Reports: Migraines, Other (See Below) Other Neuro History: restless leg syndrome Psychiatric History: Reports: Anxiety, Depression Endocrine/Metabolic History: Reports: Hypothyroidism Hematologic History: Reports: None Immunologic History: Reports: None Oncologic (Cancer) History: Reports: None Dermatologic History: Reports: None - Past Surgical History Head Surgeries/Procedures: Reports: None HEENT Surgical History: Reports: Adenoidectomy, Oral Surgery, Tonsillectomy Cardiovascular Surgical History: Reports: None Respiratory Surgical History: Reports: None GI Surgical History: Reports: Colonoscopy Other GI Surgeries/Procedures: patient reports constipation. Female Surgical History: Reports: Breast Reconstruction, Hysterectomy, Other (See Below) Other Female Surgeries/Procedures: breast reduction Endocrine Surgical History: Reports: None Neurological Surgical History: Reports: Other (See Below) Other Neurological Surgeries/Procedures: L5S1, L3L4L5 surgeries Musculoskeletal Surgical History: Reports: Arthroscopic Procedure, Carpal Tunnel, Knee Replacement, Other (See Below) Other Musculoskeletal Surgeries/Procedures:: carpel tunnel surgery, Right total knee replacement, back surgery X2 Oncologic Surgical History: Reports: None Dermatological Surgical History: Reports: None - SUBSTANCE USE Tobacco Use Status *Q: Former Tobacco User Recreational Drug Use History: No - HOME MEDS Home Medications: Home Meds Levothyroxine Sodium [Synthroid] 100 mcg PO DAILY 02/13/18 [History] Venlafaxine HCl [Venlafaxine ER] 150 mg PO BEDTIME 02/13/18 [History] Melatonin 5 mg PO ASDIRECTED 05/15/18 [History] Naproxen Sodium [Aleve] 220 mg PO BEDTIME PRN 04/21/20 [History] Acetaminophen/HYDROcodone [Milton 325-5 MG] 1 - 2 tab PO Q6H PRN #4 tablet 04/24/20 [Rx] - CURRENT (IN HOUSE) MEDS Current Meds: Current Medications Lactated Ringer's (Ringers, Lactated) 1,000 mls @ 125 mls/hr IV ASDIRECTED BETHANY Stop: 04/24/20 23:00 Lidocaine/Sodium Bicarbonate (Buffered Lidocaine 1% In Ns 8.4%) 0.25 ml IDERM ONETIME PRN PRN Reason: Prior to IV Start Stop: 04/24/20 16:00 Sodium Chloride (Saline Flush) 10 ml FLUSH ASDIRECTED PRN PRN Reason: Keep Vein Open Stop: 04/24/20 18:00
--- NOTE | 2020-04-24 07:49 | PCM48HPAN ---
Post Anesthesia Note - EVALUATION WITHIN 48HRS OF ANESTHETIC Vital Signs in Normal Range: Yes Patient Participated in Evaluation: Yes Respiratory Function Stable: Yes Airway Patent: Yes Cardiovascular Function Stable: Yes Hydration Status Stable: Yes Pain Control Satisfactory: Yes Nausea and Vomiting Control Satisfactory: Yes Mental Status Recovered: Yes Vital Signs: Last Vital Signs Temp 36.3 C 04/24/20 06:20 Pulse 63 04/24/20 06:20 Resp 16 04/24/20 06:20 BP 130/66 04/24/20 06:20 Pulse Ox 99 04/24/20 06:20 - COMMENTS/OBSERVATIONS Free Text/Narrative:: no anesthesia complications noted
--- NOTE | 2020-05-08 14:16 | PCM.OPNOTE ---
- General Post-Op/Procedure Note Date of Surgery/Procedure: 04/24/20 Operative Procedure(s): left carpal tunnel release Pre Op Diagnosis: left median nerve compression neuropathy Post-Op Diagnosis: Same Anesthesia Technique: Local, MAC Primary Surgeon: Ino Boswell Anesthesia Provider: Prashanth Vila [facility] Therapist: Monie Tejeda EBL in mLs: 5 Complications: None Condition: Good
--- NOTE | 2020-05-08 15:04 | OR ---
DATE OF OPERATION: 04/24/2020 SURGEON: Ino Boswell MD OPERATION PERFORMED: Left carpal tunnel release. PREOPERATIVE DIAGNOSIS: Left median nerve compression neuropathy. POSTOPERATIVE DIAGNOSIS: Left median nerve compression neuropathy. ANESTHESIA: Local MAC. ANESTHESIA PROVIDER: Prashanth Vila CRNA [facility] OT: Monie Tejeda PA-C ESTIMATED BLOOD LOSS: Less than 5 mL. COMPLICATIONS: None. CONDITION: Stable. DESCRIPTION OF PROCEDURE: The patient was identified in the preop holding area. Proper site was marked and identified by the surgeon. The patient was taken back to the operating theater where after adequate anesthesia, the patient's left upper extremity was sterilely prepped and draped in the usual sterile fashion. OR time-out was performed. The patient did not receive antibiotics and it is not indicated for soft tissue hand procedure. At this time, the left upper extremity was exsanguinated and an Esmarch was used as a tourniquet on the forearm. At this time, using 1% lidocaine without epinephrine and 0.25% Marcaine without epinephrine, the palmar cutaneous branch of the median nerve was anesthetized and then the incisional site was anesthetized using Bonner cardinal line and ulnar border of the fourth digit as reference. Once this had set up, an incision was made. Blunt dissection was taken down to the palmar cutaneous fascia. Palmar cutaneous fascia was incised with a [place] blade. At this time, the transverse carpal ligament was identified. A small rent was made in the transverse carpal ligament with a [place] blade under direct visualization. Resection of the transverse carpal ligament was done distally using tenotomy scissors making sure to stop short of the palmar arch. At this time, attention was turned proximally after it was found to be adequately released. Using the tenotomy scissors keeping the tips ulnar to protect the palmar cutaneous branch of the median nerve, the superficial forearm fascia as well as the transverse carpal ligament were resected proximally. It was found to be adequate release both proximally and distally. At this time, adequate saline was irrigated through the wound. 4-0 nylon sutures were used closure of the skin. The patient was placed in a sterile soft dressing and sent to PACU in stable condition. MMODAL /[id number]
== END | disposition home or self-care (01) ==
LOC: JD.SDS 06:20
PROVIDERS: ATTEND Orthopaedic Surgery
DX: G56.12 Other lesions of median nerve, left upper limb (principal); G56.02 Carpal tunnel syndrome, left upper limb; E03.9 Hypothyroidism, unspecified; Z79.899 Other long term (current) drug therapy; Z88.8 Allergy status to other drugs, medicaments and biological substances; Z87.891 Personal history of nicotine dependence
CPT/HCPCS: 64721; 87641; J0690; J2001; J2250; J2405; J2704; J3010; J3490; J7120; 01810

== ENCOUNTER 2023-01-21 20:23 | Emergency (ER) | payer BC ==
[2023-01-21] MEDS ORDERED: Sodium Chloride 0.9% 10 ML Syringe FLUSH PRN (20:36)
[2023-01-21] MEDS ORDERED: Aspirin 81 MG Tab.Chew PO ONE (20:36)
[2023-01-21 20:43] LABS: EOSINOPHILS PERCENT AUTO 0 (0.7-5.8); HEMATOCRIT 38.6 % (34.1-44.9); IMMATURE GRAN ABSOLUTE AUTO 0.01 K/mm3 (0.00-0.10); IMMATURE GRAN PERCENT AUTO 0.1 % (<=1.0); LYMPHOCYTES ABSOLUTE AUTO 3.25 K/mm3 (1.18-3.74); LYMPHOCYTES PERCENT AUTO 37.5 % (19.3-51.7); MEAN CORPUSCULAR HGB CONC 33.2 g/dl (32.2-35.5); MEAN CORPUSCULAR VOLUME 87.3 fl (79.4-94.8); MONOCYTES ABSOLUTE AUTO 0.75 K/mm3 (0.24-0.36); MONOCYTES PERCENT AUTO 8.7 % (4.7-12.5); NEUTROPHILS ABSOLUTE AUTO 4.65 K/mm3 (1.56-6.13); NEUTROPHILS PERCENT AUTO 53.7 % (34.0-71.1); PLATELET COUNT,PLT 298 K/mm3 (182-369); RED BLOOD CELL COUNT 4.42 M/mm3 (3.98-5.22); WHITE BLOOD CELL COUNT,WBC 8.66 K/mm3 (3.98-10.04)
[2023-01-21 20:44] LABS: HEMOGLOBIN 12.8 gm/dl (11.2-15.7)
[2023-01-21 21:13] LABS: PROTHROMBIN TIME 9.6 SECONDS (9.7-12.0)
[2023-01-21 21:17] LABS: INR < 0.93
[2023-01-21 21:19] LABS: A/G RATIO 1.1 (1-2); ALANINE AMINOTRANSFERASE,ALT 45 U/L (14-59); ALKALINE PHOSPHATASE 75 U/L (46-116); ANION GAP 11.1 (5-15); ASPARTATE AMNIOTRANSFERASE,AST 25 U/L (15-37); BILIRUBIN TOTAL 0.4 mg/dL (0.2-1.0); BLOOD UREA NITROGEN,BUN 17 mg/dL (7-18); BUN/CREATININE RATIO 18.9 (14-18); CARBON DIOXIDE,CO2 29 mEq/L (21-32); CHLORIDE,CL 104 mEq/L (98-107); CREATININE 0.9 mg/dL (0.55-1.02); EST CRCL DRUG DOSING (CG) 55.86 mL/min; ESTIMATED GFR 76 mL/min (>60); GLUCOSE RANDOM 99 mg/dL (70-99); MAGNESIUM 2.1 mg/dL (1.8-2.4); POTASSIUM,K 4.1 mEq/L (3.5-5.1); PROTEIN TOTAL,TP 7.5 g/dl (6.4-8.2); SODIUM,NA 140 mEq/L (136-145)
[2023-01-21 21:23] LABS: TROPONIN I HIGH SENSITIVITY < 4 pg/mL (<=51)
[2023-01-22] MEDS ORDERED: Ketorolac 30 MG/ML SDV IVPUSH ONE (00:46)
== END 2023-01-22 01:54 | disposition home or self-care (01) ==
LOC: JD.ED 20:23
DX: R07.9 Chest pain, unspecified (principal); E03.9 Hypothyroidism, unspecified; Z88.5 Allergy status to narcotic agent; Z88.8 Allergy status to other drugs, medicaments and biological substances; Z79.899 Other long term (current) drug therapy; Z90.710 Acquired absence of both cervix and uterus
CPT/HCPCS: 36415; 71045; 80053; 83735; 83880; 84484; 85025; 85379; 85610; 93005; 96374; 99285; A9270; J1885; 93010; 99284

== ENCOUNTER 2023-02-12 18:48 | Emergency (ER) | payer BC | END 2023-02-12 21:16 | disposition home or self-care (01) | LOC: JD.ED 18:48 | DX: S90.32XA Contusion of left foot, initial encounter (principal); E03.9 Hypothyroidism, unspecified; Z79.899 Other long term (current) drug therapy; Z88.8 Allergy status to other drugs, medicaments and biological substances; W18.30XA Fall on same level, unspecified, initial encounter | CPT/HCPCS: 93971-26-LT; 93971-LT; 99283 ==

== ENCOUNTER 2023-03-09 15:03 | Emergency (ER) | payer BC ==
[2023-03-09] MEDS ORDERED: Acetaminophen/HYDROcodone 325-10 MG Tab PO ONE (15:28)
[2023-03-09] MEDS ORDERED: oxyCODONE ER 20 MG TAB.ER PO ONE (17:21)
== END 2023-03-09 17:45 | disposition home or self-care (01) ==
LOC: JD.ED 15:03
DX: K21.9 Gastro-esophageal reflux disease without esophagitis (principal); E03.9 Hypothyroidism, unspecified; Z79.899 Other long term (current) drug therapy; Z88.5 Allergy status to narcotic agent; Z88.6 Allergy status to analgesic agent; Z88.8 Allergy status to other drugs, medicaments and biological substances
CPT/HCPCS: 73610; 73620; 99283; A9270

== ENCOUNTER 2024-02-15 10:53 | Emergency (ER) | payer BC | END 2024-02-15 14:30 | disposition home or self-care (01) | LOC: JD.ED 10:53 | DX: L03.116 Cellulitis of left lower limb (principal); T81.41XA Infection following a procedure, superficial incisional surgical site, initial encounter; K21.9 Gastro-esophageal reflux disease without esophagitis; E03.9 Hypothyroidism, unspecified; Z90.710 Acquired absence of both cervix and uterus; Z79.899 Other long term (current) drug therapy; Z88.8 Allergy status to other drugs, medicaments and biological substances; Z88.5 Allergy status to narcotic agent; Z98.890 Other specified postprocedural states | CPT/HCPCS: 99282; 99283 ==

== ENCOUNTER 2024-09-23 18:13 | Emergency (ER) | payer BC ==
[2024-09-23] MEDS ORDERED: Sodium Chloride 0.9% 10 ML Syringe FLUSH PRN (18:29)
[2024-09-23 18:43] LABS: HEMATOCRIT 33.6 % (37.0-47.0); HEMOGLOBIN 11.3 gm/dl (12.0-16.0); IMMATURE GRAN ABSOLUTE AUTO 0.02 K/mm3 (0.00-0.05); IMMATURE GRAN PERCENT AUTO 0.3 % (0.0-0.4); LYMPHOCYTES PERCENT AUTO 29.4 % (24.0-44.0); MEAN CORPUSCULAR HEMOGLOBIN 29.4 pg (28.0-32.0); MEAN CORPUSCULAR HGB CONC 33.6 g/dl (32.0-36.0); MEAN CORPUSCULAR VOLUME 87.5 fl (83.0-99.0); MEAN PLATELET VOLUME 9.2 fl (9.4-12.3); MONOCYTES ABSOLUTE AUTO 0.5 K/mm3 (0.0-0.8); MONOCYTES PERCENT AUTO 6.6 % (0.0-8.0); NEUTROPHILS ABSOLUTE AUTO 4.3 K/mm3 (1.8-7.7); NEUTROPHILS PERCENT AUTO 63.7 % (41.0-71.0); PLATELET COUNT,PLT 232 K/mm3 (150-400); RED BLOOD CELL COUNT 3.84 M/mm3 (4.10-5.30); WHITE BLOOD CELL COUNT,WBC 6.78 K/mm3 (3.9-11.3)
[2024-09-23] MEDS: Alum Hydrox/Mag Hydrox/Simeth 30 ML, Lidocaine 2% 15 ML PO ONE (18:45)
[2024-09-23] MEDS: Sodium Chloride 0.9% 1,000 ML IV SCH (18:46)
[2024-09-23] MEDS: Iopamidol 612 MG/ML 100 ML Bottle IVPUSH ONE (19:01)
[2024-09-23] MEDS: Sodium Chloride 0.9% 10 ML Syringe FLUSH ONE (19:01)
[2024-09-23 19:07] LABS: A/G RATIO 1.5 (1-2); ANION GAP 12.7 (5-15); BILIRUBIN TOTAL 0.5 mg/dL (0.2-1.0); C-REACTIVE PROTEIN 0.08 mg/dL (<0.30); CALCIUM 9.1 mg/dL (8.5-10.1); EST CRCL DRUG DOSING (CG) 51.96 mL/min; POTASSIUM,K 3.7 mEq/L (3.5-5.1); PROTEIN TOTAL,TP 6.7 g/dl (6.4-8.2)
[2024-09-23 19:48] LABS: APPEARANCE,URINE CLEAR (Clear); BILIRUBIN,URINE NEGATIVE (Negative); COLOR,URINE YELLOW (Yellow); GLUCOSE,URINE NEGATIVE (Negative); KETONES,URINE NEGATIVE (Negative); LEUKOCYTE ESTERASE,URINE NEGATIVE (Negative); NITRITE,URINE NEGATIVE (Negative); OCCULT BLOOD,URINE NEGATIVE (Negative); PROTEIN,URINE NEGATIVE (Negative)
== END 2024-09-23 20:00 | disposition home or self-care (01) ==
LOC: JD.ED 18:13
DX: K29.80 Duodenitis without bleeding (principal); D64.9 Anemia, unspecified; E03.9 Hypothyroidism, unspecified; Z88.8 Allergy status to other drugs, medicaments and biological substances; Z88.5 Allergy status to narcotic agent; Z79.899 Other long term (current) drug therapy; Z79.890 Hormone replacement therapy
CPT/HCPCS: 36415; 71045; 74177; 80053; 81003; 83690; 84484; 85025; 86140; 93005; 99284; A9270; J7030; Q9967; 93010